=== PATIENT | male | born 1950 ===

== ENCOUNTER 2018-04-19 10:54 | Observation (INO) | payer MEDICARE ==
[2018-04-19 11:06] VITALS: BMI 22.6
[2018-04-19 12:45] LABS: VENOUS BLOOD GAS PCO2 48 mmHg (40-60); VENOUS BLOOD GAS PO2 15 mm/Hg (30-55)
[2018-04-19 12:56] LABS: BASO % 0.2 % (0.0-2.0); EOS # 0.1 K/uL (0.0-0.7); EOS % 2.5 % (0.0-4.0); HEMOGLOBIN 9.1 g/dL (12.0-18.0); LYMPH # 0.5 K/uL (1.0-4.3); LYMPH % 13.6 % (20.0-40.0); MEAN CELL VOLUME 71.5 fl (80.0-94.0); MEAN CORPUSCULAR HEMOGLOBIN 22.6 pg (27.0-31.0); MEAN CORPUSCULAR HGB CONC 31.6 g/dL (33.0-37.0); MEAN PLATELET VOLUME 8.8 fl (7.2-11.7); MONO # 0.4 K/uL (0.0-0.8); NEUT # 2.7 K/uL (1.8-7.0); NEUT % 73.7 % (50.0-75.0); RBC 4.03 Mil/uL (4.40-5.90); RED CELL DISTRIBUTION WIDTH 17.7 % (11.5-14.5); WHITE BLOOD COUNT 3.6 K/uL (4.8-10.8)
--- NOTE | 2018-04-19 13:03 | RAD ---
Date of service: 04/19/2018 HISTORY: possible admission COMPARISON: Portable chest 10/18/2013. FINDINGS: LUNGS: No active pulmonary disease. PLEURA: No significant pleural effusion identified, no pneumothorax apparent. CARDIOVASCULAR: Normal. OSSEOUS STRUCTURES: No significant abnormalities. VISUALIZED UPPER ABDOMEN: Normal. OTHER FINDINGS: None. IMPRESSION: No interval pulmonary disease appreciated bilaterally.
[2018-04-19 13:06] LABS: ALB/GLOB RATIO 1.4 (1.0-2.1); ALBUMIN 4.4 g/dL (3.5-5.0); ALT/SGPT 25 U/L (21-72); AST/SGOT 34 U/L (17-59); BLOOD UREA NITROGEN 20 mg/dl (9-20); CALCIUM 9.2 mg/dL (8.4-10.2); GFR NON-AFRICAN AMERICAN > 60
[2018-04-19 13:07] LABS: INR 1.1; PROTHROMBIN TIME 12.5 Seconds (9.8-13.1)
[2018-04-19 13:10] LABS: PARTIAL THROMBOPLASTIN TIME 37.5 Seconds (25.6-37.1)
[2018-04-19 13:34] LABS: URINE BILIRUBIN NEGATIVE (NEGATIVE); URINE BLOOD LARGE (NEGATIVE); URINE CLARITY TURBID (Clear); URINE COLOR RED (YELLOW); URINE GLUCOSE (UA) 50 mg/dL (Normal); URINE LEUKOCYTE ESTERASE NEG Leu/uL (Negative); URINE PROTEIN 100 mg/dL (NEGATIVE); URINE UROBILINOGEN 0.2-1.0 mg/dL (0.2-1.0)
[2018-04-19] MEDS ORDERED: Sodium Chloride 0.9% 1,000 ML IV STA (13:36)
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
[2018-04-19] MEDS ORDERED: Oxycodone/Acetaminophen 5/325 mg Tab PO STA (14:45)
[2018-04-19] MEDS ORDERED: Oxycodone/Acetaminophen 5/325 mg Tab ONE (15:17)
--- NOTE | 2018-04-19 17:27 | US ---
Date of service: 04/19/2018 PROCEDURE: Ultrasound of the Bladder HISTORY: gross hematuria COMPARISON: None available. TECHNIQUE: Sonographic evaluation of the bladder was performed. FINDINGS: There is [id number] diffuse urinary bladder wall thickening. No evidence of mass lesion or Intraluminal debris. No calculus or gross mass lesion. No free fluid in pelvis. Prevoid Volume: 102.3 cc. Post void residual: 21.24 cc. The prostate is enlarged protruding into the posterior bladder Asya. IMPRESSION: Diffuse circumferential urinary bladder wall thickening likely due to chronic bladder outlet obstruction due to enlarged prostate. Calculated postvoid residual is 21.2 cc.
--- NOTE | 2018-04-19 17:47 | US ---
Date of service: 04/19/2018 PROCEDURE: Ultrasound of the Kidneys HISTORY: gross hematuria COMPARISON: Correlation is made to CT scan of the abdomen and pelvis dated 03/28/13. TECHNIQUE: Sonogram of the kidneys. FINDINGS: RIGHT KIDNEY: Measures: 9.3 x 4.3 x 5.0 cm. Exophytic midpole cyst measuring 1.3 x 1.1 x 1.2 cm with thin avascular septation. Exophytic lower pole cyst measuring 3.5 x 3.6 x 3.5 cm. Lower pole cyst measuring 2.9 x 3.5 x 3.3 cm with thin avascular septation. Normal in size, contour and echogenicity. No stone, solid mass lesion or hydronephrosis visualized. LEFT KIDNEY: Measures: 9.8 x 5.5 x 4.7 cm. Midpole cyst measuring 1.5 x 1.3 x 1.3 cm. Normal in size, contour and echogenicity. No stone, solid mass lesion or hydronephrosis visualized. OTHER FINDINGS: None. IMPRESSION: Bilateral renal cysts.
[2018-04-19] MEDS ORDERED: Patient's Own Med (Oxycodone Hcl/Acetaminophen [Endocet 10-325 Mg Tablet] 1 TAB) PO PRN (22:29)
[2018-04-19] MEDS: Sodium Chloride 0.9% 1,000 ML IV SCH (23:14)
[2018-04-19] MEDS: Oxycodone/Acetaminophen 5/325 mg Tab PO PRN (23:15)
[2018-04-20] MEDS: Oxycodone/Acetaminophen 5/325 mg Tab PO PRN ×3 (05:37→16:40)
[2018-04-20 06:40] LABS: ALB/GLOB RATIO 1.4 (1.0-2.1); ALBUMIN 4.3 g/dL (3.5-5.0); ALT/SGPT 30 U/L (21-72); AST/SGOT 34 U/L (17-59); BLOOD UREA NITROGEN 16 mg/dl (9-20); CALCIUM 9.3 mg/dL (8.4-10.2); GFR NON-AFRICAN AMERICAN > 60
[2018-04-20 06:45] LABS: BASO % 0.2 % (0.0-2.0); EOS # 0.1 K/uL (0.0-0.7); EOS % 4.5 % (0.0-4.0); HEMOGLOBIN 10.2 g/dL (12.0-18.0); LYMPH # 0.6 K/uL (1.0-4.3); MEAN CELL VOLUME 71.4 fl (80.0-94.0); MEAN CORPUSCULAR HEMOGLOBIN 22.8 pg (27.0-31.0); MEAN PLATELET VOLUME 9.2 fl (7.2-11.7); MONO # 0.3 K/uL (0.0-0.8); MONO % 8.9 % (0.0-10.0); NEUT # 2.2 K/uL (1.8-7.0); NEUT % 68.4 % (50.0-75.0); NRBC % 0.1 % (0.0-0.0); RBC 4.45 Mil/uL (4.40-5.90); RED CELL DISTRIBUTION WIDTH 17.9 % (11.5-14.5); WHITE BLOOD COUNT 3.2 K/uL (4.8-10.8)
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
--- NOTE | 2018-04-20 13:20 | CP.PCM.CON ---
History of Present Illness - History of Present Illness History of Present Illness: This patient whole is 67 years of age male presented to the emergency room with the gross hematuria passing some clots as well. And painless. Patient stated that he has similar problem about couple years ago when he has a prosthetic surgery and also deny any chest pain no shortness of breath no difficulty breathing and no history of kidney problem otherwise. Past medical history as we mentioned above prostate tick surgery. Social history not contributory. Review of Systems - Constitutional Constitutional: absent: Anorexia, Chills - EENT Eyes: absent: Exophthalmos Nose/Mouth/Throat: absent: Nasal Congestion, Nasal Discharge - Cardiovascular Cardiovascular: absent: Acrocyanosis, Dyspnea, Leg Ulcers - Respiratory Respiratory: absent: Cough, Dyspnea - Gastrointestinal Gastrointestinal: absent: Abdominal Pain, Bloating, Coffee Ground Emesis - Genitourinary Genitourinary: As Per HPI, Hematuria - Musculoskeletal Musculoskeletal: absent: Abnormal Gait, Back Pain - Neurological Neurological: absent: As Per HPI, Abnormal Gait, Abnormal Hearing, Abnormal Movements, Abnormal Speech, Behavioral Changes, Burning Sensations, Confusion, Convulsions, Disequilibrium, Dizziness, Numbness, Focal Weakness, Frequent Falls , Headaches, Lack of Coordination, Loss of Vision, Memory Loss, Paresthesias, Radicular Pain, Restless Legs, Sensory Deficit, Syncope, Tingling, Tremor, Vertigo, Weakness, Other Visual Disturbances, Other - Psychiatric Psychiatric: absent: As Per HPI, Abnormal Sleep Pattern, Anhedonia, Anxiety, Auditory Hallucinations, Behavioral Changes, Change in Appetite, Change in Libido, Confusion, Depression, Difficulty Concentrating, Hallucinations, Homicidal Ideation, Hopelessness, Irritability, Memory Loss, Mood Swings, Panic Attacks, Paranoia, Suicidal Ideation, Visual Hallucinations, Tactile Hallucinations, Other - Endocrine Endocrine: absent: As Per HPI, Change in Body Appearance, Change in Libido, Cold Intolorance, Deepening of Voice, Excessive Sweating, Fatigue, Flushing, Heat Intolorance, Increase in Ring/Shoe/Hat Size, Palpitations, Polydipsia, Polyphagia, Polyuria, Other - Hematologic/Lymphatic Hematologic: absent: Easy Bleeding Past Patient History - Infectious Disease Hx of Infectious Diseases: None - Past Medical History & Family History Past Medical History?: Yes - Past Social History Smoking Status: Never Smoked - CARDIAC Hx Cardiac Disorders: Yes Hx Hypertension: Yes - PULMONARY Hx Respiratory Disorders: No - NEUROLOGICAL Hx Neurological Disorder: No - HEENT Hx HEENT Problems: No - RENAL Hx Chronic Kidney Disease: No - ENDOCRINE/METABOLIC Hx Endocrine Disorders: No - HEMATOLOGICAL/ONCOLOGICAL Hx Blood Disorders: No - INTEGUMENTARY Hx Dermatological Problems: No - MUSCULOSKELETAL/RHEUMATOLOGICAL Hx Musculoskeletal Disorders: Yes Hx Back Pain: Yes Hx Falls: No - GASTROINTESTINAL Hx Gastrointestinal Disorders: No - GENITOURINARY/GYNECOLOGICAL Hx Genitourinary Disorders: Yes - PSYCHIATRIC Hx Substance Use: No - SURGICAL HISTORY Hx Surgeries: Yes Hx Musculoskeletal Surgery: Yes Other/Comment: PROSTATECTOMY, Right foot surgery, back surgery - ANESTHESIA Hx Anesthesia: Yes Hx Anesthesia Reactions: No Hx Malignant Hyperthermia: No Meds Allergies/Adverse Reactions: Allergies Allergy/AdvReac Type Severity Reaction Status Date / Time No Known Allergies Allergy Verified 07/29/15 12:42 - Medications Medications: Current Medications Fentanyl (Duragesic) 1 patch TD Q72H [facility] PRN Reason: Protocol Last Admin: 04/19/18 23:13 Dose: 1 patch Sodium Chloride (Sodium Chloride 0.9%) 1,000 mls @ 75 mls/hr IV .[id number] [facility] Stop: 04/20/18 22:28 Last Admin: 04/19/18 23:14 Dose: 75 mls/hr Piperacillin Sod/Tazobactam (Sod 3.375 gm/ Sodium Chloride) 100 mls @ 100 mls/ hr IVPB Q8 [facility] PRN Reason: Protocol Lisinopril (Zestril) 20 mg PO DAILY [facility] Last Admin: 04/20/18 10:29 Dose: 20 mg Oxycodone/Acetaminophen (Percocet 5/325 Mg Tab) 2 tab PO Q6 PRN PRN Reason: Pain, severe (8-10) Stop: 04/23/18 08:58 Last Admin: 04/20/18 10:29 Dose: 2 tab Physical Exam - Constitutional Appears: No Acute Distress - ENT Exam ENT Exam: Mucous Membranes Moist - Neck Exam Neck exam: Negative for: Lymphadenopathy - Respiratory Exam Respiratory Exam: NORMAL BREATHING PATTERN. absent: Chest Wall Tenderness - Cardiovascular Exam Cardiovascular Exam: REGULAR RHYTHM. absent: JVD, Rubs - GI/Abdominal Exam GI & Abdominal Exam: Normal Bowel Sounds - Extremities Exam Extremities exam: Negative for: calf tenderness - Back Exam Back exam: absent: CVA tenderness (L), CVA tenderness (R) - Neurological Exam Neurological exam: Alert - Psychiatric Exam Psychiatric exam: Normal Affect Results - Vital Signs Recent Vital Signs: Last Vital Signs Temp 97.9 F 04/20/18 07:56 Pulse 74 04/20/18 10:29 Resp 20 04/20/18 07:56 BP 162/76 H 04/20/18 10:29 Pulse Ox 99 04/20/18 07:56 - Labs Result Diagrams: 04/20/18 05:55 04/20/18 05:55 Labs: Laboratory Results - last 24 hr 04/19/18 04/20/18 04/20/18 13:13 05:55 05:55 WBC 3.2 L RBC 4.45 Hgb 10.2 L Hct 31.8 L MCV 71.4 L MCH 22.8 L MCHC 32.0 L RDW 17.9 H Plt Count 101 L MPV 9.2 Neut % (Auto) 68.4 Lymph % (Auto) 18.0 L [place] % (Auto) 8.9 Eos % (Auto) 4.5 H Baso % (Auto) 0.2 Neut # (Auto) 2.2 Lymph # (Auto) 0.6 L [place] # (Auto) 0.3 Eos # (Auto) 0.1 Baso # (Auto) 0.0 Sodium 139 Potassium 5.3 H Chloride 106 Carbon Dioxide 24 Anion Gap 14 BUN 16 Creatinine 0.7 L Est GFR ( Amer) > 60 Est GFR (Non-Af Amer) > 60 Random Glucose 92 Calcium 9.3 Total Bilirubin 0.7 AST 34 ALT 30 Alkaline Phosphatase 63 Total Protein 7.5 Albumin 4.3 Globulin 3.1 Albumin/Globulin Ratio 1.4 Urine Color Red Urine Clarity Turbid Urine pH 5.0 Ur Specific [place] 1.026 Urine Protein 100 Urine Glucose (UA) 50 Urine Ketones Negative Urine Blood Large Urine Nitrate Negative Urine Bilirubin Negative Urine Urobilinogen 0.2-1.0 Ur Leukocyte Esterase Neg Urine RBC (Auto) 07977 H Assessment & Plan (1) Hematuria Assessment and Plan: Patient presented with the gross hematuria most likely related to the prostate issue or bladder ,which need urological evaluation including cystoscope urology was called Ultrasound showed bilateral small cyst of nonsignificant at this point hnlikely to cause a gross hematuria. Status: Acute (2) Urinary retention Status: Acute
[2018-04-20] MEDS: Sodium Chloride 0.9% 1,000 ML IV SCH (14:14)
[2018-04-20] MEDS: Piperacillin/Tazobact 3.375 GM in Sodium Chloride 0.9% 100 ML IVPB SCH ×3 (14:14→21:14)
[2018-04-21] MEDS: Oxycodone/Acetaminophen 5/325 mg Tab PO PRN ×3 (00:18→13:43)
[2018-04-21] MEDS: Piperacillin/Tazobact 3.375 GM in Sodium Chloride 0.9% 100 ML IVPB SCH ×2 (05:17→14:05)
--- NOTE | 2018-04-21 11:57 | CP.PCM.PN ---
Subjective - Date & Time of Evaluation Date of Evaluation: 04/21/18 Time of Evaluation: 11:55 - Subjective Subjective: patient appears to be comfortable Objective - Vital Signs/Intake and Output Vital Signs (last 24 hours): Temp Pulse Resp BP Pulse Ox 97.5 F L 75 20 157/77 H 97 04/21/18 07:50 04/21/18 08:53 04/21/18 07:50 04/21/18 08:53 04/21/18 07:50 - Medications Medications: Current Medications Fentanyl (Duragesic) 1 patch TD Q72H [facility] PRN Reason: Protocol Last Admin: 04/19/18 23:13 Dose: 1 patch Piperacillin Sod/Tazobactam (Sod 3.375 gm/ Sodium Chloride) 100 mls @ 100 mls/ hr IVPB Q8@0600,1400,2200 [facility] PRN Reason: Protocol Last Admin: 04/21/18 05:17 Dose: 100 mls/hr Lisinopril (Zestril) 20 mg PO DAILY [facility] Last Admin: 04/21/18 08:53 Dose: 20 mg Oxycodone/Acetaminophen (Percocet 5/325 Mg Tab) 2 tab PO Q6 PRN PRN Reason: Pain, severe (8-10) Stop: 04/23/18 08:58 Last Admin: 04/21/18 06:42 Dose: 2 tab - Labs Labs: 04/20/18 05:55 04/20/18 12:45 PT 12.5 Seconds (9.8-13.1) 04/19/18 12:45 INR 1.1 04/19/18 12:45 APTT 37.5 Seconds (25.6-37.1) H 04/19/18 12:45 - Constitutional Appears: No Acute Distress - ENT Exam ENT Exam: Mucous Membranes Moist - Neck Exam Neck Exam: absent: Lymphadenopathy - Respiratory Exam Respiratory Exam: absent: Chest Wall Tenderness - Cardiovascular Exam Cardiovascular Exam: absent: Gallop, JVD, Rubs - GI/Abdominal Exam GI & Abdominal Exam: Soft, Normal Bowel Sounds - Extremities Exam Extremities Exam: absent: Calf Tenderness - Back Exam Back Exam: absent: CVA tenderness (L), CVA tenderness (R) - Neurological Exam Neurological Exam: Alert - Psychiatric Exam Psychiatric exam: Normal Affect - Skin Skin Exam: absent: Cyanosis Assessment and Plan (1) Hematuria Assessment & Plan: patient presented with a gross hematuria patient need urology evaluation Bilateral renal cyst to be upset of a monitor and repeat ultrasound in approximately 6-9 months Kidney function stable hour will follow-up as needed Status: Acute (2) Urinary retention Status: Acute
--- NOTE | 2018-04-21 14:06 | CP.PCM.PN ---
Subjective - Date & Time of Evaluation Date of Evaluation: 04/21/18 Time of Evaluation: 11:00 - Subjective Subjective: pt is stable, no new complaints. awaiting urology eval Objective - Vital Signs/Intake and Output Vital Signs (last 24 hours): Temp Pulse Resp BP Pulse Ox 97.5 F L 75 20 157/77 H 97 04/21/18 07:50 04/21/18 08:53 04/21/18 07:50 04/21/18 08:53 04/21/18 07:50 - Medications Medications: Current Medications Fentanyl (Duragesic) 1 patch TD Q72H [facility] PRN Reason: Protocol Last Admin: 04/19/18 23:13 Dose: 1 patch Piperacillin Sod/Tazobactam (Sod 3.375 gm/ Sodium Chloride) 100 mls @ 100 mls/ hr IVPB Q8@0600,1400,2200 [facility] PRN Reason: Protocol Last Admin: 04/21/18 05:17 Dose: 100 mls/hr Lisinopril (Zestril) 20 mg PO DAILY [facility] Last Admin: 04/21/18 08:53 Dose: 20 mg Oxycodone/Acetaminophen (Percocet 5/325 Mg Tab) 2 tab PO Q6 PRN PRN Reason: Pain, severe (8-10) Stop: 04/23/18 08:58 Last Admin: 04/21/18 13:43 Dose: 2 tab - Labs Labs: 04/20/18 05:55 04/20/18 12:45 PT 12.5 Seconds (9.8-13.1) 04/19/18 12:45 INR 1.1 04/19/18 12:45 APTT 37.5 Seconds (25.6-37.1) H 04/19/18 12:45 - Constitutional Appears: Non-toxic - Head Exam Head Exam: NORMAL INSPECTION - Eye Exam Eye Exam: Normal appearance Pupil Exam: NORMAL ACCOMODATION - ENT Exam ENT Exam: Mucous Membranes Moist - Neck Exam Neck Exam: Normal Inspection - Respiratory Exam Respiratory Exam: Clear to Ausculation Bilateral, NORMAL BREATHING PATTERN - Cardiovascular Exam Cardiovascular Exam: REGULAR RHYTHM - GI/Abdominal Exam GI & Abdominal Exam: Normal Bowel Sounds - Neurological Exam Neurological Exam: Alert, Oriented x3 Assessment and Plan - Assessment and Plan (Free Text) Assessment: 1. hematuria Plan: pt stable no more bleeding nephro eval appreciated urology eval pending will d/c if cleared by urology f/u pmd in 2-3 days cont to monitor
[2018-04-21 16:28] VITALS: RESP 18; TEMP 98.2; O2SAT 99
[2018-04-21 18:38] VITALS: BP 148/75; PULSE 72
--- NOTE | 2018-04-21 19:04 | CP.PCM.PN ---
Subjective - Date & Time of Evaluation Date of Evaluation: 04/21/18 Time of Evaluation: 19:02 - Subjective Subjective: UROLOGY pt seen today he has no more hematuria since initial presentation. Treated with iv antibiiotics for UTI he is voiding freely with clear urine. He can be discharged with PO Keflex and office follow up in 2 wks Objective - Vital Signs/Intake and Output Vital Signs (last 24 hours): Temp Pulse Resp BP Pulse Ox 98.2 F 72 18 148/75 99 04/21/18 18:37 04/21/18 18:37 04/21/18 18:37 04/21/18 18:37 04/21/18 18:37 - Medications Medications: Current Medications Fentanyl (Duragesic) 1 patch TD Q72H [facility] PRN Reason: Protocol Last Admin: 04/19/18 23:13 Dose: 1 patch Piperacillin Sod/Tazobactam (Sod 3.375 gm/ Sodium Chloride) 100 mls @ 100 mls/ hr IVPB Q8@0600,1400,2200 [facility] PRN Reason: Protocol Last Admin: 04/21/18 14:05 Dose: 100 mls/hr Lisinopril (Zestril) 20 mg PO DAILY [facility] Last Admin: 04/21/18 08:53 Dose: 20 mg Oxycodone/Acetaminophen (Percocet 5/325 Mg Tab) 2 tab PO Q6 PRN PRN Reason: Pain, severe (8-10) Stop: 04/23/18 08:58 Last Admin: 04/21/18 13:43 Dose: 2 tab - Labs Labs: 04/20/18 05:55 04/20/18 12:45 PT 12.5 Seconds (9.8-13.1) 04/19/18 12:45 INR 1.1 04/19/18 12:45 APTT 37.5 Seconds (25.6-37.1) H 04/19/18 12:45
== END 2018-04-21 19:15 | disposition home or self-care (01) ==
LOC: H.ER 10:54 → INTOOBSV 18:57 → H.ERHOLD 18:57 → H.MEDSURG1 21:43
PROVIDERS: ADMIT Family Medicine; ATTEND Family Medicine
DX: N39.0 Urinary tract infection, site not specified (principal); I10 Essential (primary) hypertension; N13.8 Other obstructive and reflux uropathy; N28.1 Cyst of kidney, acquired; N40.1 Benign prostatic hyperplasia with lower urinary tract symptoms; G89.29 Other chronic pain; R31.0 Gross hematuria; D64.9 Anemia, unspecified
CPT/HCPCS: 36415; 71045; 76770; 76857; 80053; 81003; 82803; 84132; 85025; 85610; 85730; 87086; 96360; 99285; G0378; J2543; J7030

== ENCOUNTER 2018-10-25 09:06 | Emergency (ER) | payer MEDICARE ==
[2018-10-25 09:06] VITALS: BMI 22.6
[2018-10-25 09:16] VITALS: PULSE 84; RESP 17; TEMP 97.7; O2SAT 100
--- NOTE | 2018-10-25 10:37 | CT ---
Date of service: 10/25/2018 PROCEDURE: CT HEAD WITHOUT CONTRAST. HISTORY: head injury COMPARISON: Unenhanced head CT 05/16/2013. TECHNIQUE: Axial computed tomography images were obtained through the head/brain without intravenous contrast. Radiation dose: Total exam DLP = 860.58 mGy-cm. This CT exam was performed using one or more of the following dose reduction techniques: Automated exposure control, adjustment of the mA and/or kV according to patient size, and/or use of iterative reconstruction technique. FINDINGS: HEMORRHAGE: No intracranial hemorrhage. BRAIN: Good corticomedullary differentiation is seen. Reiterated limited diffuse cerebral atrophy and chronic microangiopathy. No suspicious extra-axial fluid collection is identified and the midline brain anatomy appears grossly nonfocal as imaged. No mass effect identified. VENTRICLES: Unremarkable. No hydrocephalus. CALVARIUM: No destructive bony lesion or displaced fracture identified including through the skullbase. PARANASAL SINUSES: Unremarkable as visualized. No significant inflammatory changes. MASTOID AIR CELLS: Unremarkable as visualized. No inflammatory changes. OTHER FINDINGS: None. IMPRESSION: Limited age-related neuro degenerative changes are reiterated as compared prior CT 05/16/2013. No definite acute intracranial findings by standard CT criteria.
--- NOTE | 2018-10-25 10:47 | CT ---
Date of service: 10/25/2018 PROCEDURE: CT MAXILLOFACIAL BONES WITHOUT CONTRAST HISTORY: right periorbital injury COMPARISON: None available. TECHNIQUE: Contiguous axial CT images of the maxillofacial bones were obtained. Coronal and sagittal reformats were generated. Radiation dose: Total exam DLP = 827.76 mGy-cm. This CT exam was performed using one or more of the following dose reduction techniques: Automated exposure control, adjustment of the mA and/or kV according to patient size, and/or use of iterative reconstruction technique. FINDINGS: NASAL BONES: Unremarkable. ORBITS: Unremarkable. PARANASAL SINUSES/ MASTOIDS: Others partial opacification of the bilateral mastoid air cell complexes, particularly inferiorly reflecting bilateral mastoid effusions without obvious bony destruction appreciable. MAXILLA: Unremarkable. MANDIBLE/ TEMPOROMANDIBULAR JOINTS: Unremarkable. SKULL BASE: Unremarkable. TEMPORAL BONES: Middle ears and mastoid grossly unremarkable. OTHER FINDINGS: None. IMPRESSION: No posttraumatic findings throughout the facial bone CT exams submitted, including right orbit. Note is made of limited bilateral mastoid effusions at the inferior mastoid air cell complex. No definite evidence of otitis media, bilaterally.
--- NOTE | 2018-10-25 10:52 | ED PDOC ---
HPI: Trauma/Fall - HPI Time Seen by Provider: 10/25/18 09:30 Chief Complaint (Nursing): Trauma Chief Complaint (Provider): Trauma History Per: Patient History/Exam Limitations: no limitations Injury Occurred (Timing): Today @ (829) Additional Complaint(s): 68 year old male with past history of chronic back pain, presents to the emergency department for an evaluation of a trip and fall injury that occurred 30 minutes prior to arrival as he was walking up stairs to his building. Patient states he tripped on the last step and hit face on the ground. He denies loss of consciousness, dizziness, other bodily injuries, syncope, chest pain, shortness of breath, numbness, or weakness. At present, he reports a headache and right eye pain. Patient did not take his prescribed Percocet for relief today. PCP: Dr. Simba Alcantara Past Medical History Reviewed: Historical Data, Nursing Documentation, Vital Signs Vital Signs: Last Vital Signs Temp 97.7 F 10/25/18 09:15 Pulse 84 10/25/18 09:15 Resp 17 10/25/18 09:15 BP 176/75 H 10/25/18 09:15 Pulse Ox 100 10/25/18 09:15 - Medical History PMH: Back Problems (on percocet), HTN Denies: Chronic Kidney Disease - Family History Family History: States: Unknown Family Hx - Immunization History Hx Tetanus Toxoid Vaccination: No Hx Influenza Vaccination: No Hx Pneumococcal Vaccination: No - Home Medications Home Medications: Ambulatory Orders Medication Instructions Recorded Lisinopril [Zestril] 20 mg PO DAILY 04/19/18 Oxycodone HCl/Acetaminophen 1 tab PO Q6 PRN 04/19/18 [Endocet 10-325 mg Tablet] fentaNYL 50 mcg/hr [Duragesic 1 patch TD Q72H 04/19/18 Patch 50 mcg/hr] - Allergies Allergies/Adverse Reactions: Allergies Allergy/AdvReac Type Severity Reaction Status Date / Time No Known Allergies Allergy Verified 07/29/15 12:42 Review of Systems ROS Statement: Except As Marked, All Systems Reviewed And Found Negative ENT: Positive for: Other (facial injury) Cardiovascular: Negative for: Chest Pain Respiratory: Negative for: Shortness of Breath Neurological: Negative for: Weakness, Numbness, Dizziness, Other (LOC or syncope) Physical Exam - Reviewed Nursing Documentation Reviewed: Yes Vital Signs Reviewed: Yes - Physical Exam Appears: Positive for: No Acute Distress Head Exam: Negative for: ATRAUMATIC Skin: Positive for: Normal Color Eye Exam: Positive for: EOMI, PERRL, Other (2cm superfical laceration to border of right eyebrow and orbital region without bleeding, swelling, or ecchymosis) ENT: Positive for: Normal ENT Inspection Neck: Positive for: Normal, Painless ROM, Supple Cardiovascular/Chest: Positive for: Regular Rate, Rhythm, Chest Non Tender Respiratory: Positive for: Normal Breath Sounds. Negative for: Respiratory Distress Extremity: Positive for: Normal ROM (upper/lowr). Negative for: Tenderness (upper/lower), Deformity (upper/lower) Neurologic/Psych: Positive for: Alert, Oriented. Negative for: Motor/Sensory Deficits - ECG O2 Sat by Pulse Oximetry: 100 (RA) Pulse Ox Interpretation: Normal - Progress Re-evaluation Time: 11:45 Condition: Re-examined, Improved Medical Decision Making Medical Decision Making: Initial Impression: head injury; facial injury Initial Plan: * CT Head * CT maxillofacial Time: 3 --CT head FINDINGS: HEMORRHAGE: No intracranial hemorrhage. BRAIN: Good corticomedullary differentiation is seen. Reiterated limited diffuse cerebral atrophy and chronic microangiopathy. No suspicious extra-axial fluid c ollection is identified and the midline brain anatomy appears grossly nonfocal as imaged. No mass effect identified. VENTRICLES: Unremarkable. No hydrocephalus. CALVARIUM: No destructive bony lesion or displaced fracture identified including through the skullbase. PARANASAL SINUSES: Unremarkable as visualized. No significant inflammatory changes. MASTOID AIR CELLS: Unremarkable as visualized. No inflammatory changes. OTHER FINDINGS: None. IMPRESSION: Limited age-related neuro degenerative changes are reiterated as compared prior CT 05/16/2013. No definite acute intracranial findings by standard CT criteria. Time: 1044 --CT maxillofacial FINDINGS: NASAL BONES: Unremarkable. ORBITS: Unremarkable. PARANASAL SINUSES/ MASTOIDS: Others partial opacification of the bilateral mastoid air cell complexes, particularly inferiorly reflecting bilateral mastoid effusions without obvious bony destruction appreciable. MAXILLA: Unremarkable. MANDIBLE/ TEMPOROMANDIBULAR JOINTS: Unremarkable. SKULL BASE: Unremarkable. TEMPORAL BONES: Middle ears and mastoid grossly unremarkable. OTHER FINDINGS: None. IMPRESSION: No posttraumatic findings throughout the facial bone CT exams submitted, including right orbit. Note is made of limited bilateral mastoid effusions at the inferior mastoid air cell complex. No definite evidence of otitis media, bilaterally. - Scribe Attestation: Documented by Iona Judd, acting as a scribe for Naomy Walters MD. Provider Scribe Attestation: All medical record entries made by the Scribe were at my direction and personally dictated by me. I have reviewed the chart and agree that the record accurately reflects my personal performance of the history, physical exam, medical decision making, and the department course for this patient. I have also personally directed, reviewed, and agree with the discharge instructions and disposition. Disposition - Clinical Impression Clinical Impression: Head injury, Facial injury, Facial laceration - Patient ED Disposition Is Patient to be Admitted: No Doctor Will See Patient In The: Office Counseled Patient/Family Regarding: Studies Performed, Diagnosis - Disposition Referrals: Simba Alcantara MD [Primary Care Provider] - Disposition: Routine/Home Disposition Time: 11:47 Condition: GOOD Additional Instructions: FARHAT GAMEZ, thank you for letting us take care of you today. Your provider was Naomy Walters MD and you were treated for FALL:FACIAL INJURY. The emergency medical care you received today was directed at your acute symptoms. If you were prescribed any medication, please fill it and take as directed. It may take several days for your symptoms to resolve. Return to the Emergency Department if your symptoms worsen, do not improve, or if you have any other pr oblems. Please contact your doctor or call one of the physicians/clinics you have been referred to that are listed on the Patient Visit Information form that is included in your discharge packet. Bring any paperwork you were given at discharge with you along with any medications you are taking to your follow up visit. Our treatment cannot replace ongoing medical care by a primary care provider outside of the emergency department. Thank you for allowing the [email or web address] team to be part of your care today. If you had an X-Ray or CT scan: A Radiologist will review the ED reading if any change in treatment is needed we will contact you. If you had a blood, urine, or wound culture: It will take several days for the results, if any change in treatment is needed we will contact you. If you had an STI test: It will take 48 hours for the results. Please call after 1 week if you have not heard back. Instructions: Closed Head Injury (DC)
[2018-10-25 12:00] VITALS: BP 132/74
== END 2018-10-25 12:01 | disposition home or self-care (01) ==
LOC: H.ER 09:06 → SUPCPDRO 09:06 → H.ER 12:01
DX: S01.81XA Laceration without foreign body of other part of head, initial encounter (principal); W10.9XXA Fall (on) (from) unspecified stairs and steps, initial encounter; Y92.89 Other specified places as the place of occurrence of the external cause; G89.29 Other chronic pain; I10 Essential (primary) hypertension; I73.9 Peripheral vascular disease, unspecified

== ENCOUNTER 2019-01-02 13:23 | Observation (INO) | payer MEDICARE ==
[2019-01-02 13:24] VITALS: BMI 22.6
[2019-01-02 14:29] LABS: BASO # 0.1 K/uL (0.0-0.2); BASO % 0.6 % (0.0-2.0); EOS # 0.6 K/uL (0.0-0.7); EOS % 5.6 % (0.0-4.0); HEMOGLOBIN 8.2 g/dL (12.0-18.0); LYMPH # 3.3 K/uL (1.0-4.3); LYMPH % 29.6 % (20.0-40.0); MEAN CELL VOLUME 65.7 fl (80.0-94.0); MEAN CORPUSCULAR HEMOGLOBIN 19.8 pg (27.0-31.0); MEAN CORPUSCULAR HGB CONC 30.1 g/dL (33.0-37.0); MEAN PLATELET VOLUME 8.9 fl (7.2-11.7); MONO # 0.8 K/uL (0.0-0.8); MONO % 7.2 % (0.0-10.0); NEUT # 6.4 K/uL (1.8-7.0); NRBC % 0.1 % (0.0-0.0); RBC 4.16 Mil/uL (4.40-5.90); RED CELL DISTRIBUTION WIDTH 24.9 % (11.5-14.5); WHITE BLOOD COUNT 11.2 K/uL (4.8-10.8)
[2019-01-02 14:44] LABS: ALB/GLOB RATIO 1.2 (1.0-2.1); ALBUMIN 4.3 g/dL (3.5-5.0); ALT/SGPT 65 U/L (21-72); AST/SGOT 78 U/L (17-59); BLOOD UREA NITROGEN 23 mg/dl (9-20); CALCIUM 8.6 mg/dL (8.4-10.2); GFR NON-AFRICAN AMERICAN > 60
--- NOTE | 2019-01-02 15:18 | ED PDOC ---
HPI: Altered Mental Status Time Seen by Provider: 01/02/19 13:52 Chief Complaint (Nursing): Altered Mental Status Chief Complaint (Provider): AMS History Per: Patient, EMS History/Exam Limitations: None Onset/Duration Of Symptoms: Hrs Current Symptoms Are (Timing): Better Exacerbating Factor(s): Unknown Additional History Per: Patient Associated Symptoms: Syncope Additional Complaint(s): 68 year old male brought in by EMS in stretcher after he was found by his grand- daughter leaning against stove with his eye closed. Patient reports he was cooking and when he came to, EMS was over him. Patient reports his last episode of syncope was 6 months ago, was seen in hospital and admitted overnight for observation. Records demonstrate he was admitted on 12/11/2018 for symptomatic anemia. Patient denies having physical compliants at this time. denies nausea, vomiting, dizziness, blurry vision, abdominal pain. Patient states he took percocet 10/325mg at 5am today. Past Medical History Reviewed: Historical Data, Nursing Documentation, Vital Signs Vital Signs: Last Vital Signs Temp 99.7 F H 01/02/19 13:26 Pulse 101 H 01/02/19 13:26 Resp 16 01/02/19 13:26 BP 184/95 H 01/02/19 13:26 Pulse Ox 98 01/02/19 13:26 JOELLEN Report Viewed: No Primary Care Provider: FAMILY PROVIDER,NO - Medical History PMH: Back Problems, HTN Denies: Diabetes, Hepatitis, HIV, Chronic Kidney Disease, Seizures, Sexually Transmitted Disease - Surgical History Surgical History: No Surg Hx - Family History Family History: States: Unknown Family Hx - Living Arrangements Living Arrangements: With Family (granddaughter) - Immunization History Hx Tetanus Toxoid Vaccination: No Hx Influenza Vaccination: No Hx Pneumococcal Vaccination: No - Allergies Allergies/Adverse Reactions: Allergies Allergy/AdvReac Type Severity Reaction Status Date / Time No Known Allergies Allergy Verified 01/02/19 13:38 Review of Systems ROS Statement: Except As Marked, All Systems Reviewed And Found Negative Constitutional: Negative for: Fever, Chills, Sweats, Weakness, Malaise Respiratory: Negative for: Cough, Shortness of Breath, SOB with Exertion, Wheezing Gastrointestinal: Negative for: Nausea, Vomiting, Abdominal Pain, Diarrhea, Constipation Genitourinary Male: Negative for: Dysuria Skin: Negative for: Rash Neurological: Negative for: Weakness, Numbness, Incoordination, Change in Speech, Confusion, Seizures, Altered Mental Status, Headache, Dizziness, Other Physical Exam - Reviewed Nursing Documentation Reviewed: Yes Vital Signs Reviewed: Yes - Physical Exam Appears: Positive for: Well, Non-toxic, No Acute Distress Head Exam: Positive for: ATRAUMATIC, NORMAL INSPECTION, NORMOCEPHALIC Skin: Positive for: Normal Color, Warm, DRY Eye Exam: Positive for: Normal appearance, EOMI, PERRL. Negative for: Nystagmus, Periorbital swelling, Periorbital tenderness, Conjunctival injection ENT: Positive for: Normal ENT Inspection Neck: Positive for: Normal, Painless ROM, Supple Cardiovascular/Chest: Positive for: Regular Rate, Rhythm Respiratory: Positive for: CNT, Normal Breath Sounds Pulses-Radial (L): 2+ Pulses-Radial (R): 2+ Gastrointestinal/Abdominal: Positive for: Normal Exam, Bowel Sounds, Soft. Negative for: Tenderness, Distended Back: Positive for: Normal Inspection Extremity: Positive for: Normal ROM Neurological/Psych: Positive for: Awake, Alert, Normal Tone, Oriented, forestry fire aide II- XII (intact). Negative for: Motor/Sensory Deficits - Laboratory Results Result Diagrams: 01/02/19 14:14 01/02/19 14:14 Lab Results: Troponin I < 0.0120 ng/mL (0.00-0.120) 01/02/19 14:14 Total Bilirubin 0.5 mg/dl (0.2-1.3) 01/02/19 14:14 AST 78 U/L (17-59) H D 01/02/19 14:14 ALT 65 U/L (21-72) 01/02/19 14:14 Alkaline Phosphatase 147 U/L (38-126) H D 01/02/19 14:14 Total Protein 7.9 G/DL (6.3-8.2) 01/02/19 14:14 Albumin 4.3 g/dL (3.5-5.0) 01/02/19 14:14 Globulin 3.6 gm/dL (2.2-3.9) 01/02/19 14:14 Albumin/Globulin Ratio 1.2 (1.0-2.1) 01/02/19 14:14 - ECG ECG Rhythm: Positive for: Normal QRS Rate: 89 O2 Sat by Pulse Oximetry: 98 Pulse Ox Interpretation: Normal - Radiology X-Ray: Interpreted by Me X-Ray Interpretation: No Acute Disease Medical Decision Making Medical Decision Making: --CBC --CMP --trop --UA --Urine CS --Cxr --CT head --0.9ns --zofran --Rocephin 1600 Labs reviewed by me: hgb 8.2 hct: 27.3 on 12/16/18 he was d/c with hgb of 9.1 hct 30.3. UA: large leuks, Many Bacteria, WBC's. Patient denies having dark or bloody stools. Patient is now c/o dizziness and nausea started after returning from xray. Dr. Brendan cohen called to notify, Patient to be admitted to Telemetry Observation. --0.9 NS 1000 -- zofran 4mg iv Accession No. : [id number] Patient Name / ID : VERA DOUGHERTY / [id number] Exam Date : 01/02/2019 15:02:48 ( Approved ) Study Comment : Sex / Age : M / 68Y Creator : Manuel Trammell MD Dictator : Manuel Trammell MD Cable Placer : Boat Hoist Operator : Manuel Trammell MD Approver2 : Report Date : 01/02/2019 16:26:47 My Comment : Date of service: 01/02/2019 HISTORY: syncope COMPARISON: Portable chest 04/19/2018. TECHNIQUE: Chest PA and lateral views FINDINGS: LUNGS: No active pulmonary disease. PLEURA: No significant pleural effusion identified. No pneumothorax apparent. CARDIOVASCULAR: No aortic atherosclerotic calcification present. Normal cardiac size. No pulmonary vascular congestion. OSSEOUS STRUCTURES: No significant abnormalities. VISUALIZED UPPER ABDOMEN: Normal. OTHER FINDINGS: None. IMPRESSION: No interval acute cardiopulmonary disease appreciated. Accession No. : [id number] Patient Name / ID : VERA DOUGHERTY / [id number] Exam Date : 01/02/2019 15:06:41 ( Approved ) Study Comment : Sex / Age : M / 68Y Creator : Manuel Trammell MD Dictator : Manuel Trammell MD Cable Placer : Boat Hoist Operator : Manuel Trammell MD Approver2 : Report Date : 01/02/2019 15:28:02 My Comment : Date of service: 01/02/2019 PROCEDURE: CT HEAD WITHOUT CONTRAST. HISTORY: syncope COMPARISON: Noncontrast head CT 10/25/2018. TECHNIQUE: Axial computed tomography images were obtained through the head/brain without intravenous contrast. Radiation dose: Total exam DLP = 864.61 mGy-cm. This CT exam was performed using one or more of the following dose reduction techniques: Automated exposure control, adjustment of the mA and/or kV according to patient size, and/or use of iterative reconstruction technique. FINDINGS: HEMORRHAGE: No intracranial hemorrhage. BRAIN: Stable age related neuro degenerative changes are identified comprised of mild d iffuse cerebral atrophy and chronic microangiopathy. No interval mass effect or loss of corticomedullary differentiation. Midline brain anatomy is stable and there is no suspicious extra-axial collection appreciated. VENTRICLES: Unremarkable. No hydrocephalus. CALVARIUM: Unremarkable. PARANASAL SINUSES: Unremarkable as visualized. No significant inflammatory changes. MASTOID AIR CELLS: Unremarkable as visualized. No inflammatory changes. OTHER FINDINGS: None. IMPRESSION: No definite acute intracranial findings. Stable mild age related neuro degenerative changes reiterated as compared to prior CT 10/25/2018. Disposition - Clinical Impression Clinical Impression: Syncope, UTI (urinary tract infection) - Patient ED Disposition Is Patient to be Admitted: Yes Counseled Patient/Family Regarding: Diagnosis - Disposition Disposition Time: 16:00 Condition: FAIR - Pt Status Changed To: Hospital Disposition Of: Observation - POA Present On Arrival: None
--- NOTE | 2019-01-02 15:31 | CT ---
Date of service: 01/02/2019 PROCEDURE: CT HEAD WITHOUT CONTRAST. HISTORY: syncope COMPARISON: Noncontrast head CT 10/25/2018. TECHNIQUE: Axial computed tomography images were obtained through the head/brain without intravenous contrast. Radiation dose: Total exam DLP = 864.61 mGy-cm. This CT exam was performed using one or more of the following dose reduction techniques: Automated exposure control, adjustment of the mA and/or kV according to patient size, and/or use of iterative reconstruction technique. FINDINGS: HEMORRHAGE: No intracranial hemorrhage. BRAIN: Stable age related neuro degenerative changes are identified comprised of mild diffuse cerebral atrophy and chronic microangiopathy. No interval mass effect or loss of corticomedullary differentiation. Midline brain anatomy is stable and there is no suspicious extra-axial collection appreciated. VENTRICLES: Unremarkable. No hydrocephalus. CALVARIUM: Unremarkable. PARANASAL SINUSES: Unremarkable as visualized. No significant inflammatory changes. MASTOID AIR CELLS: Unremarkable as visualized. No inflammatory changes. OTHER FINDINGS: None. IMPRESSION: No definite acute intracranial findings. Stable mild age related neuro degenerative changes reiterated as compared to prior CT 10/25/2018.
[2019-01-02 16:02] LABS: URINE BACTERIA MANY (<OCC); URINE BILIRUBIN NEGATIVE (NEGATIVE); URINE BLOOD MODERATE (NEGATIVE); URINE CLARITY TURBID (Clear); URINE COLOR YELLOW (YELLOW); URINE GLUCOSE (UA) NEG (NEGATIVE); URINE LEUKOCYTE ESTERASE LARGE Leu/uL (Negative); URINE PROTEIN 30 mg/dL (NEGATIVE); URINE UROBILINOGEN 0.2-1.0 mg/dL (0.2-1.0)
[2019-01-02] MEDS ORDERED: Sodium Chloride 0.9% 1,000 ML IV STA (16:17)
--- NOTE | 2019-01-02 16:28 | CARD ---
APPROVED REPORT Date of service: 01/02/2019 EKG Measurement Heart [id number] <Conclusion> Normal sinus rhythm Possible Left atrial enlargement Borderline ECG
--- NOTE | 2019-01-02 16:30 | RAD ---
Date of service: 01/02/2019 HISTORY: syncope COMPARISON: Portable chest 04/19/2018. TECHNIQUE: Chest PA and lateral views FINDINGS: LUNGS: No active pulmonary disease. PLEURA: No significant pleural effusion identified. No pneumothorax apparent. CARDIOVASCULAR: No aortic atherosclerotic calcification present. Normal cardiac size. No pulmonary vascular congestion. OSSEOUS STRUCTURES: No significant abnormalities. VISUALIZED UPPER ABDOMEN: Normal. OTHER FINDINGS: None. IMPRESSION: No interval acute cardiopulmonary disease appreciated.
[2019-01-02 16:54] LABS: INR 1.1; PROTHROMBIN TIME 12.1 Seconds (9.8-13.1)
[2019-01-02 16:56] LABS: PARTIAL THROMBOPLASTIN TIME 35.1 Seconds (25.6-37.1)
[2019-01-02 17:03] LABS: BARBITURATES, UR NEGATIVE (NEGATIVE); BENZODIAZEPINES, UR NEGATIVE (NEGATIVE); OPIATES, UR NEGATIVE (NEGATIVE); PHENCYCLIDINE, UR NEGATIVE (NEGATIVE)
[2019-01-02] MEDS ORDERED: Oxycodone/Acetaminophen 5/325 mg Tab PO PRN (23:08)
[2019-01-03 05:27] VITALS: RESP 20
[2019-01-03 05:56] LABS: HEMOGLOBIN 7.8 g/dL (12.0-18.0); MEAN CELL VOLUME 65.6 fl (80.0-94.0); MEAN CORPUSCULAR HEMOGLOBIN 19.9 pg (27.0-31.0); MEAN CORPUSCULAR HGB CONC 30.3 g/dL (33.0-37.0); RBC 3.94 Mil/uL (4.40-5.90); RED CELL DISTRIBUTION WIDTH 24.4 % (11.5-14.5); WHITE BLOOD COUNT 4.3 K/uL (4.8-10.8)
[2019-01-03] MEDS: Oxycodone/Acetaminophen 5/325 mg Tab PO PRN ×2 (05:59→12:21)
[2019-01-03 06:11] LABS: ALB/GLOB RATIO 1.1 (1.0-2.1); ALBUMIN 3.6 g/dL (3.5-5.0); ALT/SGPT 54 U/L (21-72); AST/SGOT 61 U/L (17-59); BLOOD UREA NITROGEN 20 mg/dl (9-20); CALCIUM 8.3 mg/dL (8.4-10.2); GFR NON-AFRICAN AMERICAN > 60
[2019-01-03 11:13] LABS: IRON 25 ug/dL (49-181)
[2019-01-03] MEDS ORDERED: Lidocaine 5% Patch TD SCH (11:15)
[2019-01-03 11:22] LABS: % IRON SATURATION 6 % (20-55); TOTAL IRON BINDING CAPACITY 424 ug/dL (250-450)
[2019-01-03 11:51] LABS: FERRITIN 6.1 ng/Ml (17.9-464)
--- NOTE | 2019-01-03 12:25 | CP.PCM.HP ---
History of Present Illness - History of Present Illness History of Present Illness: pt admitted for syncope and anemia. was recently in [facility] for marco a.e at present w/o ddiznes. no f/,c n/v/d all bw ntoed. hgb dropped since last night.pt has h/o chronic back pain as well. last pm/r visit over 1 month ago Present on Admission - Present on Admission Any Indicators Present on Admission: No Review of Systems - Constitutional Constitutional: As Per HPI, Fever - Neurological Neurological: As Per HPI, Syncope Past Patient History - Infectious Disease Hx of Infectious Diseases: None - Past Medical History & Family History Past Medical History?: Yes - Past Social History Smoking Status: Never Smoked - CARDIAC Hx Cardiac Disorders: Yes Hx Hypertension: Yes - PULMONARY Hx Respiratory Disorders: No Hx Tuberculosis: No - NEUROLOGICAL Hx Seizures: No - HEENT Hx HEENT Problems: No - RENAL Hx Chronic Kidney Disease: No - ENDOCRINE/METABOLIC Hx Endocrine Disorders: No - HEMATOLOGICAL/ONCOLOGICAL Hx Blood Disorders: No Hx AIDS: No Hx Human Immunodeficiency Virus (HIV): No - INTEGUMENTARY Hx Dermatological Problems: No - MUSCULOSKELETAL/RHEUMATOLOGICAL Hx Musculoskeletal Disorders: Yes Hx Back Pain: Yes Hx Falls: Yes - GASTROINTESTINAL Hx Gastrointestinal Disorders: No - GENITOURINARY/GYNECOLOGICAL Hx Genitourinary Disorders: Yes Hx Sexually Transmitted Disorders: No Hx Urinary Tract Infection: Yes - PSYCHIATRIC Hx Psychophysiologic Disorder: No Hx Substance Use: Yes - SURGICAL HISTORY Hx Surgeries: Yes Hx Musculoskeletal Surgery: Yes Other/Comment: PROSTATECTOMY, Right foot surgery, back surgery - ANESTHESIA Hx Anesthesia: Yes Hx Anesthesia Reactions: No Hx Malignant Hyperthermia: No Has any member of the family had a problem w/ anesthesia?: No Meds Allergies/Adverse Reactions: Allergies Allergy/AdvReac Type Severity Reaction Status Date / Time No Known Allergies Allergy Verified 01/02/19 13:38 Physical Exam - Constitutional Appears: Well, Non-toxic, No Acute Distress - Head Exam Head Exam: ATRAUMATIC, NORMAL INSPECTION, NORMOCEPHALIC - Eye Exam Eye Exam: EOMI, Normal appearance, PERRL Pupil Exam: NORMAL ACCOMODATION, PERRL - ENT Exam ENT Exam: Mucous Membranes Moist, Normal Exam - Neck Exam Neck exam: Positive for: Normal Inspection - Respiratory Exam Respiratory Exam: Clear to Auscultation Bilateral, NORMAL BREATHING PATTERN - Cardiovascular Exam Cardiovascular Exam: REGULAR RHYTHM, RRR, +S1, +S2 - GI/Abdominal Exam GI & Abdominal Exam: Normal Bowel Sounds, Soft. absent: Tenderness - Extremities Exam Extremities exam: Positive for: full ROM, normal capillary refill, normal inspection, pedal pulses present - Back Exam Back exam: NORMAL INSPECTION - Neurological Exam Neurological exam: Alert, CN II-XII Intact, Normal Gait, Oriented x3, Reflexes Normal - Psychiatric Exam Psychiatric exam: Normal Affect, Normal Mood - Skin Skin Exam: Dry, Intact, Normal Color, Warm Results - Vital Signs Recent Vital Signs: Last Vital Signs Temp 97.7 F 01/03/19 08:34 Pulse 66 01/03/19 08:58 Resp 20 01/03/19 08:34 BP 148/76 01/03/19 08:58 Pulse Ox 99 01/03/19 08:34 - Labs Result Diagrams: 01/03/19 04:40 01/03/19 04:40 Labs: Laboratory Results - last 24 hr 01/02/19 01/02/19 01/02/19 13:43 14:14 14:14 WBC 11.2 H D RBC 4.16 L Hgb 8.2 L D Hct 27.3 L MCV 65.7 L D MCH 19.8 L MCHC 30.1 L RDW 24.9 H Plt Count 179 MPV 8.9 Neut % (Auto) 57.0 Lymph % (Auto) 29.6 Coal % (Auto) 7.2 Eos % (Auto) 5.6 H Baso % (Auto) 0.6 Neut # (Auto) 6.4 Lymph # (Auto) 3.3 Coal # (Auto) 0.8 Eos # (Auto) 0.6 Baso # (Auto) 0.1 PT INR APTT Sodium 138 Potassium 4.3 Chloride 103 Carbon Dioxide 23 Anion Gap 16 BUN 23 H Creatinine 0.9 Est GFR ( Amer) > 60 Est GFR (Non-Af Amer) > 60 POC Glucose (mg/dL) 109 Random Glucose 118 H Calcium 8.6 Phosphorus 3.6 Magnesium 2.1 Iron TIBC % Saturation Ferritin Total Bilirubin 0.5 AST 78 H D ALT 65 Alkaline Phosphatase 147 H D Troponin I < 0.0120 Total Protein 7.9 Albumin 4.3 Globulin 3.6 Albumin/Globulin Ratio 1.2 Vitamin B12 Urine Color Urine Clarity Urine pH Ur Specific [place] Urine Protein Urine Glucose (UA) Urine Ketones Urine Blood Urine Nitrate Urine Bilirubin Urine Urobilinogen Ur Leukocyte Esterase Urine RBC (Auto) Urine Microscopic WBC Urine Bacteria Urine Opiates Screen Urine Methadone Screen Ur Barbiturates Screen Ur Phencyclidine Scrn Ur Amphetamines Screen U Benzodiazepines Scrn U Oth Cocaine Metabols U Cannabinoids Screen Alcohol, Quantitative Blood Type Antibody Screen Crossmatch BBK History Checked 01/02/19 01/02/19 01/02/19 15:46 16:30 16:30 WBC RBC Hgb Hct MCV MCH MCHC RDW Plt Count MPV Neut % (Auto) Lymph % (Auto) [place] % (Auto) Eos % (Auto) Baso % (Auto) Neut # (Auto) Lymph # (Auto) [place] # (Auto) Eos # (Auto) Baso # (Auto) PT 12.1 INR 1.1 APTT 35.1 Sodium Potassium Chloride Carbon Dioxide Anion Gap BUN Creatinine Est GFR ( Amer) Est GFR (Non-Af Amer) POC Glucose (mg/dL) Random Glucose Calcium Phosphorus Magnesium Iron TIBC % Saturation Ferritin Total Bilirubin AST ALT Alkaline Phosphatase Troponin I Total Protein Albumin Globulin Albumin/Globulin Ratio Vitamin B12 Urine Color Yellow Urine Clarity Turbid Urine pH 5.0 Ur Specific [place] 1.016 Urine Protein 30 Urine Glucose (UA) Neg Urine Ketones Negative Urine Blood Moderate Urine Nitrate Negative Urine Bilirubin Negative Urine Urobilinogen 0.2-1.0 Ur Leukocyte Esterase Large Urine RBC (Auto) 127 H Urine Microscopic WBC 1433 H Urine Bacteria Many H Urine Opiates Screen Urine Methadone Screen Ur Barbiturates Screen Ur Phencyclidine Scrn Ur Amphetamines Screen U Benzodiazepines Scrn U Oth Cocaine Metabols U Cannabinoids Screen Alcohol, Quantitative Blood Type O POSITIVE Antibody Screen Negative Crossmatch See Detail BBK History Checked Patient has bt 01/02/19 01/02/19 01/03/19 16:43 16:58 04:40 WBC 4.3 L D RBC 3.94 L Hgb 7.8 L Hct 25.8 L MCV 65.6 L MCH 19.9 L MCHC 30.3 L RDW 24.4 H Plt Count 109 L D MPV Neut % (Auto) Lymph % (Auto) [place] % (Auto) Eos % (Auto) Baso % (Auto) Neut # (Auto) Lymph # (Auto) [place] # (Auto) Eos # (Auto) Baso # (Auto) PT INR APTT Sodium Potassium Chloride Carbon Dioxide Anion Gap BUN Creatinine Est GFR ( Amer) Est GFR (Non-Af Amer) POC Glucose (mg/dL) Random Glucose Calcium Phosphorus Magnesium Iron TIBC % Saturation Ferritin Total Bilirubin AST ALT Alkaline Phosphatase Troponin I Total Protein Albumin Globulin Albumin/Globulin Ratio Vitamin B12 Urine Color Urine Clarity Urine pH Ur Specific [place] Urine Protein Urine Glucose (UA) Urine Ketones Urine Blood Urine Nitrate Urine Bilirubin Urine Urobilinogen Ur Leukocyte Esterase Urine RBC (Auto) Urine Microscopic WBC Urine Bacteria Urine Opiates Screen Negative Urine Methadone Screen Negative Ur Barbiturates Screen Negative Ur Phencyclidine Scrn Negative Ur Amphetamines Screen Negative U Benzodiazepines Scrn Negative U Oth Cocaine Metabols Negative U Cannabinoids Screen Negative Alcohol, Quantitative < 10 Blood Type Antibody Screen Crossmatch BBK History Checked 01/03/19 01/03/19 01/03/19 04:40 10:50 10:50 WBC RBC Hgb Hct MCV MCH MCHC RDW Plt Count MPV Neut % (Auto) Lymph % (Auto) [place] % (Auto) Eos % (Auto) Baso % (Auto) Neut # (Auto) Lymph # (Auto) [place] # (Auto) Eos # (Auto) Baso # (Auto) PT INR APTT Sodium 137 Potassium 4.2 Chloride 103 Carbon Dioxide 28 Anion Gap 10 BUN 20 Creatinine 0.8 Est GFR ( Amer) > 60 Est GFR (Non-Af Amer) > 60 POC Glucose (mg/dL) Random Glucose 93 Calcium 8.3 L Phosphorus Magnesium Iron 25 L TIBC 424 % Saturation 6 L Ferritin 6.1 L Total Bilirubin 0.5 AST 61 H D ALT 54 Alkaline Phosphatase 115 Troponin I 0.0150 Total Protein 6.7 Albumin 3.6 Globulin 3.2 Albumin/Globulin Ratio 1.1 Vitamin B12 597 Urine Color Urine Clarity Urine pH Ur Specific [place] Urine Protein Urine Glucose (UA) Urine Ketones Urine Blood Urine Nitrate Urine Bilirubin Urine Urobilinogen Ur Leukocyte Esterase Urine RBC (Auto) Urine Microscopic WBC Urine Bacteria Urine Opiates Screen Urine Methadone Screen Ur Barbiturates Screen Ur Phencyclidine Scrn Ur Amphetamines Screen U Benzodiazepines Scrn U Oth Cocaine Metabols U Cannabinoids Screen Alcohol, Quantitative Blood Type Antibody Screen Crossmatch BBK History Checked Assessment & Plan (1) DVT prophylaxis Assessment and Plan: scd nad aehose ambulation Status: Acute (2) Chronic back pain Assessment and Plan: percocet prn toradol lidoderm, flexeril ambulation outpt f/u Status: Acute (3) Syncope Assessment and Plan: tele monitoring likely r/t anemia Status: Acute (4) Urinary tract infection Assessment and Plan: rocephin, f/u c/s Status: Acute (5) Symptomatic anemia Assessment and Plan: 1 unit prbc f/u bw monitor labs [facility] cause of syncope Status: Acute Decision To Admit - Pt Status Changed To: Hospital Disposition Of: Observation - . Bed Request Type: Telemetry Admitting Physician: Daniela Ballesteros
[2019-01-03 12:51] VITALS: BP 159/72; PULSE 75; TEMP 98.1; O2SAT 98
[2019-01-03 23:04] LABS: FOLATE > 20.0 ng/mL
--- NOTE | 2019-01-04 11:24 | CP.PCM.DIS ---
Provider - Provider Date of Admission: 01/02/19 18:05 Attending physician: Daniela Ballesteros MD Time Spent in preparation of Discharge (in minutes): 15 Diagnosis - Discharge Diagnosis (1) DVT prophylaxis Status: Acute (2) Chronic back pain Status: Acute (3) Syncope Status: Acute (4) Urinary tract infection Status: Acute (5) Symptomatic anemia Status: Acute Hospital Course - Lab Results Lab Results: Micro Results 01/02/19 16:45 Urine,Clean Catch Urine Culture - Preliminary Gram Negative Alfonso Most Recent Lab Values WBC 4.3 K/uL (4.8-10.8) L D 01/03/19 04:40 RBC 3.94 Mil/uL (4.40-5.90) L 01/03/19 04:40 Hgb 7.8 g/dL (12.0-18.0) L 01/03/19 04:40 Hct 25.8 % (35.0-51.0) L 01/03/19 04:40 MCV 65.6 fl (80.0-94.0) L 01/03/19 04:40 MCH 19.9 pg (27.0-31.0) L 01/03/19 04:40 MCHC 30.3 g/dL (33.0-37.0) L 01/03/19 04:40 RDW 24.4 % (11.5-14.5) H 01/03/19 04:40 Plt Count 109 K/uL (130-400) L D 01/03/19 04:40 MPV 8.9 fl (7.2-11.7) 01/02/19 14:14 Neut % (Auto) 57.0 % (50.0-75.0) 01/02/19 14:14 Lymph % (Auto) 29.6 % (20.0-40.0) 01/02/19 14:14 [place] % (Auto) 7.2 % (0.0-10.0) 01/02/19 14:14 Eos % (Auto) 5.6 % (0.0-4.0) H 01/02/19 14:14 Baso % (Auto) 0.6 % (0.0-2.0) 01/02/19 14:14 Neut # (Auto) 6.4 K/uL (1.8-7.0) 01/02/19 14:14 Lymph # (Auto) 3.3 K/uL (1.0-4.3) 01/02/19 14:14 [place] # (Auto) 0.8 K/uL (0.0-0.8) 01/02/19 14:14 Eos # (Auto) 0.6 K/uL (0.0-0.7) 01/02/19 14:14 Baso # (Auto) 0.1 K/uL (0.0-0.2) 01/02/19 14:14 PT 12.1 Seconds (9.8-13.1) 01/02/19 16:30 INR 1.1 01/02/19 16:30 APTT 35.1 Seconds (25.6-37.1) 01/02/19 16:30 Sodium 137 mmol/l (132-148) 01/03/19 04:40 Potassium 4.2 MMOL/L (3.6-5.0) 01/03/19 04:40 Chloride 103 mmol/L (98-107) 01/03/19 04:40 Carbon Dioxide 28 mmol/L (22-30) 01/03/19 04:40 Anion Gap 10 (10-20) 01/03/19 04:40 BUN 20 mg/dl (9-20) 01/03/19 04:40 Creatinine 0.8 mg/dl (0.8-1.5) 01/03/19 04:40 Est GFR ( Amer) > 60 01/03/19 04:40 Est GFR (Non-Af Amer) > 60 01/03/19 04:40 POC Glucose (mg/dL) 109 mg/dL (65-110) 01/02/19 13:43 Random Glucose 93 mg/dL (75-110) 01/03/19 04:40 Calcium 8.3 mg/dL (8.4-10.2) L 01/03/19 04:40 Phosphorus 3.6 mg/dl (2.5-4.5) 01/02/19 14:14 Magnesium 2.1 MG/DL (1.6-2.3) 01/02/19 14:14 Iron 25 ug/dL (49-181) L 01/03/19 10:50 TIBC 424 ug/dL (250-450) 01/03/19 10:50 % Saturation 6 % (20-55) L 01/03/19 10:50 Transferrin 295.94 mg/dL (206-381) 01/03/19 10:50 Ferritin 6.1 ng/Ml (17.9-464) L 01/03/19 10:50 Total Bilirubin 0.5 mg/dl (0.2-1.3) 01/03/19 04:40 AST 61 U/L (17-59) H D 01/03/19 04:40 ALT 54 U/L (21-72) 01/03/19 04:40 Alkaline Phosphatase 115 U/L (38-126) 01/03/19 04:40 Troponin I 0.0150 ng/mL (0.00-0.120) 01/03/19 04:40 Total Protein 6.7 G/DL (6.3-8.2) 01/03/19 04:40 Albumin 3.6 g/dL (3.5-5.0) 01/03/19 04:40 Globulin 3.2 gm/dL (2.2-3.9) 01/03/19 04:40 Albumin/Globulin Ratio 1.1 (1.0-2.1) 01/03/19 04:40 Vitamin B12 597 pg/mL (239-931) 01/03/19 10:50 Folate > 20.0 ng/mL 01/03/19 10:50 Urine Color Yellow (YELLOW) 01/02/19 15:46 Urine Clarity Turbid (Clear) 01/02/19 15:46 Urine pH 5.0 (5.0-8.0) 01/02/19 15:46 Ur Specific [place] 1.016 (1.003-1.030) 01/02/19 15:46 Urine Protein 30 mg/dL (NEGATIVE) 01/02/19 15:46 Urine Glucose (UA) Neg mg/dL (NEGATIVE) 01/02/19 15:46 Urine Ketones Negative mg/dL (NEGATIVE) 01/02/19 15:46 Urine Blood Moderate (NEGATIVE) 01/02/19 15:46 Urine Nitrate Negative (NEGATIVE) 01/02/19 15:46 Urine Bilirubin Negative (NEGATIVE) 01/02/19 15:46 Urine Urobilinogen 0.2-1.0 mg/dL (0.2-1.0) 01/02/19 15:46 Ur Leukocyte Esterase Large Doc/uL (Negative) 01/02/19 15:46 Urine RBC (Auto) 127 /hpf (0-3) H 01/02/19 15:46 Urine Microscopic WBC 1433 /hpf (0-5) H 01/02/19 15:46 Urine Bacteria Many (<OCC) H 01/02/19 15:46 Urine Opiates Screen Negative (NEGATIVE) 01/02/19 16:43 Urine Methadone Screen Negative (NEGATIVE) 01/02/19 16:43 Ur Barbiturates Screen Negative (NEGATIVE) 01/02/19 16:43 Ur Phencyclidine Scrn Negative (NEGATIVE) 01/02/19 16:43 Ur Amphetamines Screen Negative (NEGATIVE) 01/02/19 16:43 U Benzodiazepines Scrn Negative (NEGATIVE) 01/02/19 16:43 U Oth Cocaine Metabols Negative (NEGATIVE) 01/02/19 16:43 U Cannabinoids Screen Negative (NEGATIVE) 01/02/19 16:43 Alcohol, Quantitative < 10 mg/dl (0-10) 01/02/19 16:58 Blood Type O POSITIVE 01/02/19 16:30 Antibody Screen Negative 01/02/19 16:30 Crossmatch See Detail 01/02/19 16:30 BBK History Checked Patient has bt 01/02/19 16:30 - Hospital Course Hospital Course: pt admitted for syncope and anemia. c/o chronic back pain. signed ama when no further narcotics given. Discharge Exam - Head Exam Head Exam: ATRAUMATIC, NORMAL INSPECTION, NORMOCEPHALIC Discharge Plan - Follow Up Plan Condition: FAIR Disposition: AGAINST MEDICAL ADVICE Additional Instructions: final dx-anemia, syncope, chronic pain signed ama after requesting and being refused iv narcotics did not receive blood as he signed ama rec'd 2 doses rocephin for uti. f/u outpt.
== END 2019-01-03 14:20 | disposition left against medical advice (07) ==
LOC: H.ER 13:23 → H.ERHOLD 18:05 → H.TEL 21:01
PROVIDERS: ADMIT Family Medicine; ATTEND Family Medicine
DX: D64.9 Anemia, unspecified (principal); G89.29 Other chronic pain; I10 Essential (primary) hypertension; N39.0 Urinary tract infection, site not specified; R55 Syncope and collapse
CPT/HCPCS: 36415; 70450; 71046; 80053; 81003; 82607; 82728; 82746; 82948; 83735; 84100; 84466; 84484; 85025; 85027; 85610; 85730; 86850; 86900; 86920; 87086; 93005; 96374; 99285; G0378; G0480; J0696; J1885; J2405; J7030

== ENCOUNTER 2019-01-04 13:55 | Observation (INO) | payer MEDICARE ==
[2019-01-04 13:56] VITALS: BMI 22.6
--- NOTE | 2019-01-04 15:05 | ED PDOC ---
HPI: Altered Mental Status Time Seen by Provider: 01/04/19 14:48 Chief Complaint (Nursing): Altered Mental Status Chief Complaint (Provider): Altered Mental Status History Per: Patient History/Exam Limitations: None Onset/Duration Of Symptoms: Hrs (x5) Additional Complaint(s): 68 years old male with history of hypertension brought to ER by EMS for evaluation of altered mental status onset 5 hours ago. Patient reports all he remembers was that he was cooking and then woke up in the ED. He state a friend witnessed the episode. Patient states he fainted also 2 days ago, was seen here in this ED and was admitted. 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 Patient denies chest pain and shortness of breath. PMD: [place] Past Medical History Reviewed: Historical Data, Nursing Documentation, Vital Signs Vital Signs: Last Vital Signs Temp 97 F L 01/04/19 13:59 Pulse 99 H 01/04/19 13:59 Resp 16 01/04/19 13:59 BP 158/88 H 01/04/19 13:59 Pulse Ox 94 L 01/04/19 13:59 Primary Care Provider: Procedure,Nonphys - Medical History PMH: Back Problems, HTN Denies: Diabetes, Hepatitis, HIV, Chronic Kidney Disease, Seizures, Sexually Transmitted Disease - Surgical History Surgical History: No Surg Hx - Family History Family History: States: Unknown Family Hx - Social History Drugs: Other (Heroin) - Immunization History Hx Tetanus Toxoid Vaccination: No Hx Influenza Vaccination: No Hx Pneumococcal Vaccination: No - Allergies Allergies/Adverse Reactions: Allergies Allergy/AdvReac Type Severity Reaction Status Date / Time No Known Allergies Allergy Verified 01/02/19 13:38 Review of Systems ROS Statement: Except As Marked, All Systems Reviewed And Found Negative Cardiovascular: Negative for: Chest Pain Respiratory: Negative for: Shortness of Breath Neurological: Positive for: Altered Mental Status Physical Exam - Reviewed Nursing Documentation Reviewed: Yes Vital Signs Reviewed: Yes - Physical Exam Appears: Positive for: Well, No Acute Distress Head Exam: Positive for: ATRAUMATIC, NORMOCEPHALIC Skin: Positive for: Normal Color, Warm, Dry Eye Exam: Positive for: Normal appearance, EOMI, PERRL ENT: Positive for: Normal ENT Inspection Neck: Positive for: Normal, Painless ROM, Supple Cardiovascular/Chest: Positive for: Regular Rate, Rhythm. Negative for: Murmur Respiratory: Positive for: Normal Breath Sounds. Negative for: Respiratory Distress Gastrointestinal/Abdominal: Positive for: Normal Exam, Soft. Negative for: Tenderness Back: Positive for: Normal Inspection. Negative for: L CVA Tenderness, R CVA Tenderness Extremity: Positive for: Normal ROM. Negative for: Pedal Edema, Swelling Neurological/Psych: Positive for: Awake, Alert, Oriented (x3) - ECG O2 Sat by Pulse Oximetry: 94 (RA) Pulse Ox Interpretation: Abnormal - Radiology X-Ray: Interpreted by Me X-Ray Interpretation: No Acute Disease Medical Decision Making Medical Decision Making: Time: 1500 Initial plan: --CT Head W/O Contrast --EKG --Alcohol serum --CMP --Drug screen --Troponin --Urine dipstick --CBC --PTT --PT --CXR --Urinalysis ------- Scribe Attestation: Documented by Janine Mendoza acting as a scribe for Rena Crawley MD. Provider Scribe Attestation: All medical record entries made by the Scribe were at my direction and personally dictated by me. I have reviewed the chart and agree that the record accurately reflects my personal performance of the history, physical exam, medical decision making, and the department course for this patient. I have also personally directed, reviewed, and agree with the discharge instructions and disposition. Disposition - Disposition Forms: [employer] (German)
[2019-01-04 15:47] LABS: BASO % 0.5 % (0.0-2.0); EOS # 0.3 K/uL (0.0-0.7); EOS % 4.7 % (0.0-4.0); HEMOGLOBIN 7.9 g/dL (12.0-18.0); LYMPH # 0.8 K/uL (1.0-4.3); LYMPH % 13.9 % (20.0-40.0); MEAN CELL VOLUME 65.9 fl (80.0-94.0); MEAN CORPUSCULAR HEMOGLOBIN 20.1 pg (27.0-31.0); MEAN CORPUSCULAR HGB CONC 30.4 g/dL (33.0-37.0); MEAN PLATELET VOLUME 9.3 fl (7.2-11.7); MONO # 0.5 K/uL (0.0-0.8); MONO % 9.2 % (0.0-10.0); NEUT # 4.1 K/uL (1.8-7.0); NEUT % 71.7 % (50.0-75.0); RBC 3.94 Mil/uL (4.40-5.90); RED CELL DISTRIBUTION WIDTH 24.7 % (11.5-14.5); WHITE BLOOD COUNT 5.8 K/uL (4.8-10.8)
[2019-01-04 15:50] LABS: INR 1.1; PROTHROMBIN TIME 12.4 Seconds (9.8-13.1)
[2019-01-04 15:51] LABS: SQUAMOUS EPITHIAL < 1 /hpf (0-5); URINE BILIRUBIN NEGATIVE (NEGATIVE); URINE BLOOD SMALL (NEGATIVE); URINE CLARITY CLOUDY (Clear); URINE COLOR YELLOW (YELLOW); URINE GLUCOSE (UA) NEG (NEGATIVE); URINE LEUKOCYTE ESTERASE MOD Leu/uL (Negative); URINE PROTEIN 30 mg/dL (NEGATIVE); URINE UROBILINOGEN 0.2-1.0 mg/dL (0.2-1.0)
[2019-01-04 15:53] LABS: PARTIAL THROMBOPLASTIN TIME 35.8 Seconds (25.6-37.1)
--- NOTE | 2019-01-04 16:00 | RAD ---
Date of service: 01/04/2019 HISTORY: Syncope COMPARISON: 01/02/2019. FINDINGS: LUNGS: No active pulmonary disease. PLEURA: No significant pleural effusion identified, no pneumothorax apparent. CARDIOVASCULAR: No atherosclerotic calcification present Normal. OSSEOUS STRUCTURES: No significant abnormalities. VISUALIZED UPPER ABDOMEN: Normal. OTHER FINDINGS: None. IMPRESSION: No active disease. No significant interval change compared to the prior examination(s).
[2019-01-04 16:01] LABS: BARBITURATES, UR NEGATIVE (NEGATIVE); BENZODIAZEPINES, UR NEGATIVE (NEGATIVE); OPIATES, UR POSITIVE (NEGATIVE); PHENCYCLIDINE, UR NEGATIVE (NEGATIVE)
[2019-01-04] MEDS ORDERED: cefTRIAXone (Rocephin) 1 gm Inj ONE (16:03)
--- NOTE | 2019-01-04 16:10 | CT ---
Date of service: 01/04/2019 PROCEDURE: CT HEAD WITHOUT CONTRAST. HISTORY: Syncope COMPARISON: 10/25/2018, 01/02/2019. Serial CT scans of the head. TECHNIQUE: Axial computed tomography images were obtained through the head/brain without intravenous contrast. Supplemental Coronal and Sagittal projections created and reviewed. Radiation dose: Total exam DLP = 797.55 mGy-cm. This CT exam was performed using one or more of the following dose reduction techniques: Automated exposure control, adjustment of the mA and/or kV according to patient size, and/or use of iterative reconstruction technique. FINDINGS: HEMORRHAGE: No intracranial hemorrhage. BRAIN: No mass effect or edema. Cortical and cerebellar atrophy, periventricular small vessel disease. VENTRICLES: Unremarkable. No hydrocephalus. CALVARIUM: Unremarkable. PARANASAL SINUSES: Unremarkable as visualized. No significant inflammatory changes. MASTOID AIR CELLS: Unremarkable as visualized. No inflammatory changes. OTHER FINDINGS: None. IMPRESSION: No acute intracranial abnormalities. No significant findings to account for the clinical presentation. No significant interval change compared to the prior examination(s).
[2019-01-04 16:22] LABS: ALB/GLOB RATIO 1.3 (1.0-2.1); ALBUMIN 4.3 g/dL (3.5-5.0); ALT/SGPT 51 U/L (21-72); AST/SGOT 69 U/L (17-59); BLOOD UREA NITROGEN 27 mg/dl (9-20); CALCIUM 8.5 mg/dL (8.4-10.2); GFR NON-AFRICAN AMERICAN > 60
--- NOTE | 2019-01-04 19:36 | CP.PCM.CON ---
History of Present Illness - History of Present Illness History of Present Illness: I was asked to see patient by Brendan Troy and Johann Patient seen 01/04/191933 Patient is a 68 year old male iwth HTN chronci anemia heroin abuse who presents with syncope. Patient states he was cooking hamburgers and standing for a long time when his legs felt weak. He states he passed out. There was no head trauma. He denies chest pain or palpitations. No seizure activity noted. Patient was found to be anemic and is scheduled for blood transfusion. Patient uses heroin and last use was yesterday Review of Systems - Constitutional Constitutional: absent: As Per HPI, Anorexia, Chills, Daytime Sleepiness, Excessive Sweating, Fatigue, Fever, Frequent Falls, Headache, Increased Appetite, Lethargy, Malaise, Night Sweats, Snoring, Sleep Apnea, Weight Gain, Weight Loss, Weakness, Other - EENT Eyes: absent: As Per HPI, Blind Spots, Blurred Vision, Change in Vision, Decreased Night Vision, Diplopia, Discharge, Dry Eye, Exophthalmos, Floaters, Irritation, Itchy Eyes, Loss of Peripheral Vision, Pain, Photophobia, Requires Corrective Lenses, Sees Flashes, Spots in Vision, Tunnel Vision, Other Visual Disturbances, Loss of Vision, Other Ears: absent: As Per HPI, Decreased Hearing, Ear Discharge, Ear Pain, Tinnitus, Abnormal Hearing, Disequilibrium, Dizziness, Other Nose/Mouth/Throat: absent: As Per HPI, Epistaxis, Nasal Congestion, Nasal Discharge, Nasal Obstruction, Nasal Trauma, Nose Pain, Post Nasal Drip, Sinus Pain, Sinus Pressure, Bleeding Gums, Change in Voice, Dental Pain, Dry Mouth, Dysphagia, Halitosis, Hoarsness, Lip Swelling, Mouth Lesions, Mouth Pain, Odynophagia, Sore Throat, Throat Swelling, Tongue Swelling, Facial Pain, Neck Pain, Neck Mass, Other - Cardiovascular Cardiovascular: Syncope - Respiratory Respiratory: absent: As Per HPI, Cough, Dyspnea, Hemoptysis, Dyspnea on Exertion, Wheezing, Snoring, Stridor, Pain on Inspiration, Chest Congestion, Excessive Mucous Production, Change in Mucous Color, Pain with Coughing, Other - Gastrointestinal Gastrointestinal: absent: As Per HPI, Abdominal Pain, Belching, Bloating, Change in Bowel Habits, Change in Stool Character, Coffee Ground Emesis, Constipation, Cramping, Diarrhea, Dyspepsia, Dysphagia, Early Satiety, Excessive Flatus, Fecal Incontinence, Heartburn, Hematemesis, Hematochezia, Loose Stools, Melena, Nausea, Odynophagia, Temesmus, Vomiting, Other - Genitourinary Genitourinary: absent: As Per HPI, Change in Urinary Stream, Difficulty Urinating, Dysuria, Flank Pain, Hematuria, Pyuria, Nocturia, Urinary Incontinence, Urinary Frequency, Urinary Hesitance, Urinary Urgency, Voiding Freq/Small Amts, Freq UTI, Hx Renal/Bladder Calculi, Hx /Renal Surgery, Bladder Distension, Other - Musculoskeletal Musculoskeletal: absent: As Per HPI, Abnormal Gait, Arthralgias, Atrophy, Back Pain, Deformity, Joint Swelling, Limited Range of Motion, Loss of Height, Muscle Cramps, Muscle Weakness, Myalgias, Neck Pain, Numbness, Radiating Pain into Limb, Stiffness, Tingling, Other - Integumentary Integumentary: absent: As Per HPI, Acne, Alopecia, Bleeding Lesions, Change in Hair, Change in Nails, Change in Pigmentation, Changing Lesions, Dry Skin, Daniel thema, Furuncle, Hirsutism, Lesions, New Lesions, Non-Healing Lesions, Photosensitivity, Pruritus, Rash, Skin Pain, Skin Ulcer, Sores, Striae, Swelling, Unusual Bruising, Wounds, Jaundice, Other - Neurological Neurological: absent: As Per HPI, Abnormal Gait, Abnormal Hearing, Abnormal Movements, Abnormal Speech, Behavioral Changes, Burning Sensations, Confusion, Convulsions, Disequilibrium, Dizziness, Numbness, Focal Weakness, Frequent Falls, Headaches, Lack of Coordination, Loss of Vision, Memory Loss, Paresthesias, Radicular Pain, Restless Legs, Sensory Deficit, Syncope, Tingling, Tremor, Vertigo, Weakness, Other Visual Disturbances, Other - Psychiatric Psychiatric: absent: As Per HPI, Abnormal Sleep Pattern, Anhedonia, Anxiety, Auditory Hallucinations, Behavioral Changes, Change in Appetite, Change in Libido, Confusion, Depression, Difficulty Concentrating, Hallucinations, Homicidal Ideation, Hopelessness, Irritability, Memory Loss, Mood Swings, Panic Attacks, Paranoia, Suicidal Ideation, Visual Hallucinations, Tactile Hallucinations, Other - Endocrine Endocrine: absent: As Per HPI, Change in Body Appearance, Change in Libido, Cold Intolorance, Deepening of Voice, Excessive Sweating, Fatigue, Flushing, Heat Intolorance, Increase in Ring/Shoe/Hat Size, Palpitations, Polydipsia, Polyphagia, Polyuria, Other - Hematologic/Lymphatic Hematologic: absent: As Per HPI, Easy Bleeding, Easy Bruising, Lymphadenopathy, Other Past Patient History - Infectious Disease Hx of Infectious Diseases: None - Past Medical History & Family History Past Medical History?: Yes - Past Social History Drugs: Other (Heroin) - CARDIAC Hx Hypertension: Yes - PULMONARY Hx Respiratory Disorders: No Hx Tuberculosis: No - NEUROLOGICAL Hx Seizures: No - HEENT Hx HEENT Problems: No - RENAL Hx Chronic Kidney Disease: No - ENDOCRINE/METABOLIC Hx Endocrine Disorders: No - HEMATOLOGICAL/ONCOLOGICAL Hx Human Immunodeficiency Virus (HIV): No - INTEGUMENTARY Hx Dermatological Problems: No - MUSCULOSKELETAL/RHEUMATOLOGICAL Hx Musculoskeletal Disorders: Yes Hx Back Pain: Yes Hx Falls: Yes - GASTROINTESTINAL Hx Gastrointestinal Disorders: No - GENITOURINARY/GYNECOLOGICAL Hx Sexually Transmitted Disorders: No - PSYCHIATRIC Hx Psychophysiologic Disorder: No Hx Substance Use: Yes - SURGICAL HISTORY Hx Surgeries: Yes Hx Musculoskeletal Surgery: Yes Other/Comment: PROSTATECTOMY, Right foot surgery, back surgery - ANESTHESIA Hx Anesthesia: Yes Hx Anesthesia Reactions: No Hx Malignant Hyperthermia: No Meds Allergies/Adverse Reactions: Allergies Allergy/AdvReac Type Severity Reaction Status Date / Time No Known Allergies Allergy Verified 01/02/19 13:38 - Medications Medications: Current Medications Ceftriaxone Sodium 1 gm/ (Sodium Chloride) 100 mls @ 100 mls/hr IVPB DAILY NICOLA; Protocol Lisinopril (Zestril) 20 mg PO DAILY NICOLA Physical Exam - Constitutional Appears: Non-toxic - Head Exam Head Exam: NORMAL INSPECTION - Eye Exam Eye Exam: Normal appearance - ENT Exam ENT Exam: Mucous Membranes Moist - Neck Exam Neck exam: Positive for: Full Rom, Normal Inspection - Respiratory Exam Respiratory Exam: NORMAL BREATHING PATTERN - Cardiovascular Exam Cardiovascular Exam: REGULAR RHYTHM - GI/Abdominal Exam GI & Abdominal Exam: Normal Bowel Sounds - Rectal Exam Rectal Exam: Deferred - Extremities Exam Extremities exam: Positive for: full ROM, normal capillary refill, normal inspection, pedal pulses present. Negative for: joint swelling, pedal edema, tenderness - Back Exam Back exam: NORMAL INSPECTION - Neurological Exam Neurological exam: Alert, Oriented x3 - Psychiatric Exam Psychiatric exam: Normal Affect - Skin Skin Exam: Normal Color Results - Vital Signs Recent Vital Signs: Last Vital Signs Temp 97 F L 01/04/19 13:59 Pulse 99 H 01/04/19 13:59 Resp 16 01/04/19 13:59 BP 158/88 H 01/04/19 13:59 Pulse Ox 94 L 01/04/19 15:37 - Labs Result Diagrams: 01/04/19 15:36 01/04/19 15:36 Labs: Laboratory Results - last 24 hr 01/04/19 01/04/19 01/04/19 15:36 15:36 15:36 WBC 5.8 RBC 3.94 L Hgb 7.9 L Hct 26.0 L MCV 65.9 L MCH 20.1 L MCHC 30.4 L RDW 24.7 H Plt Count 156 MPV 9.3 Neut % (Auto) 71.7 Lymph % (Auto) 13.9 L [place] % (Auto) 9.2 Eos % (Auto) 4.7 H Baso % (Auto) 0.5 Neut # (Auto) 4.1 Lymph # (Auto) 0.8 L [place] # (Auto) 0.5 Eos # (Auto) 0.3 Baso # (Auto) 0.0 PT 12.4 INR 1.1 APTT 35.8 Sodium 136 Potassium 5.1 H Chloride 102 Carbon Dioxide 26 Anion Gap 13 BUN 27 H Creatinine 0.8 Est GFR ( Amer) > 60 Est GFR (Non-Af Amer) > 60 Random Glucose 95 Calcium 8.5 Total Bilirubin 0.5 AST 69 H ALT 51 Alkaline Phosphatase 111 Troponin I < 0.0120 Total Protein 7.7 Albumin 4.3 Globulin 3.4 Albumin/Globulin Ratio 1.3 Urine Color Urine Clarity Urine pH Ur Specific [place] Urine Protein Urine Glucose (UA) Urine Ketones Urine Blood Urine Nitrate Urine Bilirubin Urine Urobilinogen Ur Leukocyte Esterase Urine RBC (Auto) Urine Microscopic WBC Ur Squamous Epith Cells Hyaline Casts Urine Opiates Screen Urine Methadone Screen Ur Barbiturates Screen Ur Phencyclidine Scrn Ur Amphetamines Screen U Benzodiazepines Scrn U Oth Cocaine Metabols U Cannabinoids Screen Alcohol, Quantitative < 10 Blood Type Antibody Screen Crossmatch BBK History Checked 01/04/19 01/04/19 01/04/19 15:36 15:36 18:25 WBC RBC Hgb Hct MCV MCH MCHC RDW Plt Count MPV Neut % (Auto) Lymph % (Auto) [place] % (Auto) Eos % (Auto) Baso % (Auto) Neut # (Auto) Lymph # (Auto) [place] # (Auto) Eos # (Auto) Baso # (Auto) PT INR APTT Sodium Potassium Chloride Carbon Dioxide Anion Gap BUN Creatinine Est GFR ( Amer) Est GFR (Non-Af Amer) Random Glucose Calcium Total Bilirubin AST ALT Alkaline Phosphatase Troponin I Total Protein Albumin Globulin Albumin/Globulin Ratio Urine Color Yellow Urine Clarity Cloudy Urine pH 6.0 Ur Specific [place] 1.020 Urine Protein 30 Urine Glucose (UA) Neg Urine Ketones Negative Urine Blood Small Urine Nitrate Negative Urine Bilirubin Negative Urine Urobilinogen 0.2-1.0 Ur Leukocyte Esterase Mod Urine RBC (Auto) 16 H Urine Microscopic WBC 111 H Ur Squamous Epith Cells < 1 Hyaline Casts 6-10 H Urine Opiates Screen Positive H Urine Methadone Screen Negative Ur Barbiturates Screen Negative Ur Phencyclidine Scrn Negative Ur Amphetamines Screen Negative U Benzodiazepines Scrn Negative U Oth Cocaine Metabols Negative U Cannabinoids Screen Negative Alcohol, Quantitative Blood Type O POSITIVE Antibody Screen Negative Crossmatch See Detail BBK History Checked Patient has bt - EKG Data EKG Interpreted by: Myself EKG shows normal: Sinus rhythm Assessment & Plan (1) Syncope Assessment and Plan: unclear etiology. unlikley cardiac in origin. no evidence of facial or body trauma. can monitor receck EKG, otherwise sched outpatient monitor. schedule othostatics. Status: Acute (2) Symptomatic anemia Assessment and Plan: possible cause of symptoms. follow hgb, transfuse as necessary Status: Acute
[2019-01-05] MEDS ORDERED: Lidocaine 5% Patch TD ONE ×2 (03:34→07:39)
[2019-01-05 05:31] LABS: BASO % 0.2 % (0.0-2.0); EOS # 0.2 K/uL (0.0-0.7); EOS % 5.2 % (0.0-4.0); HEMOGLOBIN 9.3 g/dL (12.0-18.0); LYMPH # 0.6 K/uL (1.0-4.3); LYMPH % 13.4 % (20.0-40.0); MEAN CELL VOLUME 66.8 fl (80.0-94.0); MEAN CORPUSCULAR HEMOGLOBIN 20.6 pg (27.0-31.0); MEAN CORPUSCULAR HGB CONC 30.9 g/dL (33.0-37.0); MONO # 0.4 K/uL (0.0-0.8); MONO % 10.2 % (0.0-10.0); NEUT # 3.1 K/uL (1.8-7.0); RBC 4.53 Mil/uL (4.40-5.90); RED CELL DISTRIBUTION WIDTH 25.6 % (11.5-14.5); WHITE BLOOD COUNT 4.3 K/uL (4.8-10.8)
[2019-01-05 05:41] LABS: ALB/GLOB RATIO 1.2 (1.0-2.1); ALT/SGPT 46 U/L (21-72); AST/SGOT 57 U/L (17-59); BLOOD UREA NITROGEN 20 mg/dl (9-20); CALCIUM 8.8 mg/dL (8.4-10.2); GFR NON-AFRICAN AMERICAN > 60
[2019-01-05 07:46] VITALS: BP 146/75; PULSE 67; RESP 18; TEMP 97.6; O2SAT 100
--- NOTE | 2019-01-05 11:59 | CARD ---
APPROVED REPORT Date of service: 01/04/2019 EKG Measurement Heart [id number] <Conclusion> Normal sinus rhythm Possible Left atrial enlargement Borderline ECG
--- NOTE | 2019-01-05 12:29 | CP.PCM.HP ---
Past Patient History - Infectious Disease Hx of Infectious Diseases: None - Past Medical History & Family History Past Medical History?: Yes - Past Social History Smoking Status: Former Smoker - CARDIAC Hx Cardiac Disorders: Yes Hx Hypertension: Yes - PULMONARY Hx Respiratory Disorders: No - NEUROLOGICAL Hx Neurological Disorder: Yes Hx Syncope: Yes - HEENT Hx HEENT Problems: No - RENAL Hx Chronic Kidney Disease: No - ENDOCRINE/METABOLIC Hx Endocrine Disorders: No - HEMATOLOGICAL/ONCOLOGICAL Hx Blood Disorders: Yes Hx Anemia: Yes Hx Blood Transfusions: Yes Hx Human Immunodeficiency Virus (HIV): No - INTEGUMENTARY Hx Dermatological Problems: No - MUSCULOSKELETAL/RHEUMATOLOGICAL Hx Musculoskeletal Disorders: Yes Hx Back Pain: Yes Hx Falls: Yes - GASTROINTESTINAL Hx Gastrointestinal Disorders: No - GENITOURINARY/GYNECOLOGICAL Hx Genitourinary Disorders: No Hx Sexually Transmitted Disorders: No - PSYCHIATRIC Hx Psychophysiologic Disorder: No Hx Substance Use: Yes (HEROIN) - SURGICAL HISTORY Hx Surgeries: Yes Other/Comment: PROSTATECTOMY, Right foot surgery, back surgery - ANESTHESIA Hx Anesthesia: Yes Hx Anesthesia Reactions: No Hx Malignant Hyperthermia: No Meds Allergies/Adverse Reactions: Allergies Allergy/AdvReac Type Severity Reaction Status Date / Time No Known Allergies Allergy Verified 01/02/19 13:38 Results - Vital Signs Recent Vital Signs: Last Vital Signs Temp 97.6 F 01/05/19 07:46 Pulse 67 01/05/19 07:46 Resp 18 01/05/19 07:46 BP 146/75 01/05/19 07:46 Pulse Ox 100 01/05/19 07:46 - Labs Result Diagrams: 01/05/19 05:10 01/05/19 05:10 Labs: Laboratory Results - last 24 hr 01/04/19 01/04/19 01/04/19 15:36 15:36 15:36 WBC 5.8 RBC 3.94 L Hgb 7.9 L Hct 26.0 L MCV 65.9 L MCH 20.1 L MCHC 30.4 L RDW 24.7 H Plt Count 156 MPV 9.3 Neut % (Auto) 71.7 Lymph % (Auto) 13.9 L [place] % (Auto) 9.2 Eos % (Auto) 4.7 H Baso % (Auto) 0.5 Neut # (Auto) 4.1 Lymph # (Auto) 0.8 L [place] # (Auto) 0.5 Eos # (Auto) 0.3 Baso # (Auto) 0.0 PT 12.4 INR 1.1 APTT 35.8 Sodium 136 Potassium 5.1 H Chloride 102 Carbon Dioxide 26 Anion Gap 13 BUN 27 H Creatinine 0.8 Est GFR ( Amer) > 60 Est GFR (Non-Af Amer) > 60 Random Glucose 95 Calcium 8.5 Total Bilirubin 0.5 AST 69 H ALT 51 Alkaline Phosphatase 111 Troponin I < 0.0120 Total Protein 7.7 Albumin 4.3 Globulin 3.4 Albumin/Globulin Ratio 1.3 Urine Color Urine Clarity Urine pH Ur Specific [place] Urine Protein Urine Glucose (UA) Urine Ketones Urine Blood Urine Nitrate Urine Bilirubin Urine Urobilinogen Ur Leukocyte Esterase Urine RBC (Auto) Urine Microscopic WBC Ur Squamous Epith Cells Hyaline Casts Urine Opiates Screen Urine Methadone Screen Ur Barbiturates Screen Ur Phencyclidine Scrn Ur Amphetamines Screen U Benzodiazepines Scrn U Oth Cocaine Metabols U Cannabinoids Screen Alcohol, Quantitative < 10 Blood Type Antibody Screen Crossmatch BBK History Checked 01/04/19 01/04/19 01/04/19 15:36 15:36 18:25 WBC RBC Hgb Hct MCV MCH MCHC RDW Plt Count MPV Neut % (Auto) Lymph % (Auto) [place] % (Auto) Eos % (Auto) Baso % (Auto) Neut # (Auto) Lymph # (Auto) [place] # (Auto) Eos # (Auto) Baso # (Auto) PT INR APTT Sodium Potassium Chloride Carbon Dioxide Anion Gap BUN Creatinine Est GFR ( Amer) Est GFR (Non-Af Amer) Random Glucose Calcium Total Bilirubin AST ALT Alkaline Phosphatase Troponin I Total Protein Albumin Globulin Albumin/Globulin Ratio Urine Color Yellow Urine Clarity Cloudy Urine pH 6.0 Ur Specific [place] 1.020 Urine Protein 30 Urine Glucose (UA) Neg Urine Ketones Negative Urine Blood Small Urine Nitrate Negative Urine Bilirubin Negative Urine Urobilinogen 0.2-1.0 Ur Leukocyte Esterase Mod Urine RBC (Auto) 16 H Urine Microscopic WBC 111 H Ur Squamous Epith Cells < 1 Hyaline Casts 6-10 H Urine Opiates Screen Positive H Urine Methadone Screen Negative Ur Barbiturates Screen Negative Ur Phencyclidine Scrn Negative Ur Amphetamines Screen Negative U Benzodiazepines Scrn Negative U Oth Cocaine Metabols Negative U Cannabinoids Screen Negative Alcohol, Quantitative Blood Type O POSITIVE Antibody Screen Negative Crossmatch See Detail BBK History Checked Patient has bt 01/05/19 01/05/19 05:10 05:10 WBC 4.3 L RBC 4.53 Hgb 9.3 L Hct 30.3 L MCV 66.8 L MCH 20.6 L MCHC 30.9 L RDW 25.6 H Plt Count 131 MPV 9.0 Neut % (Auto) 71.0 Lymph % (Auto) 13.4 L [place] % (Auto) 10.2 H Eos % (Auto) 5.2 H Baso % (Auto) 0.2 Neut # (Auto) 3.1 Lymph # (Auto) 0.6 L [place] # (Auto) 0.4 Eos # (Auto) 0.2 Baso # (Auto) 0.0 PT INR APTT Sodium 134 Potassium 4.9 Chloride 99 Carbon Dioxide 27 Anion Gap 13 BUN 20 Creatinine 0.7 L Est GFR ( Amer) > 60 Est GFR (Non-Af Amer) > 60 Random Glucose 95 Calcium 8.8 Total Bilirubin 0.5 AST 57 ALT 46 Alkaline Phosphatase 119 Troponin I Total Protein 7.5 Albumin 4.0 Globulin 3.4 Albumin/Globulin Ratio 1.2 Urine Color Urine Clarity Urine pH Ur Specific [place] Urine Protein Urine Glucose (UA) Urine Ketones Urine Blood Urine Nitrate Urine Bilirubin Urine Urobilinogen Ur Leukocyte Esterase Urine RBC (Auto) Urine Microscopic WBC Ur Squamous Epith Cells Hyaline Casts Urine Opiates Screen Urine Methadone Screen Ur Barbiturates Screen Ur Phencyclidine Scrn Ur Amphetamines Screen U Benzodiazepines Scrn U Oth Cocaine Metabols U Cannabinoids Screen Alcohol, Quantitative Blood Type Antibody Screen Crossmatch BBK History Checked
--- NOTE | 2019-01-05 12:29 | CP.PCM.DIS ---
Provider - Provider Date of Admission: 01/04/19 16:03 Attending physician: Daniela Ballesteros MD Consults: 01/04/19 23:22 Social Work Referral Routine Comment: HEROIN ABUSE Physician Instructions: Reason For Exam: HEROIN ABUSE Hospital Course - Lab Results Lab Results: Most Recent Lab Values WBC 4.3 K/uL (4.8-10.8) L 01/05/19 05:10 RBC 4.53 Mil/uL (4.40-5.90) 01/05/19 05:10 Hgb 9.3 g/dL (12.0-18.0) L 01/05/19 05:10 Hct 30.3 % (35.0-51.0) L 01/05/19 05:10 MCV 66.8 fl (80.0-94.0) L 01/05/19 05:10 MCH 20.6 pg (27.0-31.0) L 01/05/19 05:10 MCHC 30.9 g/dL (33.0-37.0) L 01/05/19 05:10 RDW 25.6 % (11.5-14.5) H 01/05/19 05:10 Plt Count 131 K/uL (130-400) 01/05/19 05:10 MPV 9.0 fl (7.2-11.7) 01/05/19 05:10 Neut % (Auto) 71.0 % (50.0-75.0) 01/05/19 05:10 Lymph % (Auto) 13.4 % (20.0-40.0) L 01/05/19 05:10 [place] % (Auto) 10.2 % (0.0-10.0) H 01/05/19 05:10 Eos % (Auto) 5.2 % (0.0-4.0) H 01/05/19 05:10 Baso % (Auto) 0.2 % (0.0-2.0) 01/05/19 05:10 Neut # (Auto) 3.1 K/uL (1.8-7.0) 01/05/19 05:10 Lymph # (Auto) 0.6 K/uL (1.0-4.3) L 01/05/19 05:10 [place] # (Auto) 0.4 K/uL (0.0-0.8) 01/05/19 05:10 Eos # (Auto) 0.2 K/uL (0.0-0.7) 01/05/19 05:10 Baso # (Auto) 0.0 K/uL (0.0-0.2) 01/05/19 05:10 PT 12.4 Seconds (9.8-13.1) 01/04/19 15:36 INR 1.1 01/04/19 15:36 APTT 35.8 Seconds (25.6-37.1) 01/04/19 15:36 Sodium 134 mmol/l (132-148) 01/05/19 05:10 Potassium 4.9 MMOL/L (3.6-5.0) 01/05/19 05:10 Chloride 99 mmol/L (98-107) 01/05/19 05:10 Carbon Dioxide 27 mmol/L (22-30) 01/05/19 05:10 Anion Gap 13 (10-20) 01/05/19 05:10 BUN 20 mg/dl (9-20) 01/05/19 05:10 Creatinine 0.7 mg/dl (0.8-1.5) L 01/05/19 05:10 Est GFR ( Amer) > 60 01/05/19 05:10 Est GFR (Non-Af Amer) > 60 01/05/19 05:10 Random Glucose 95 mg/dL (75-110) 01/05/19 05:10 Calcium 8.8 mg/dL (8.4-10.2) 01/05/19 05:10 Total Bilirubin 0.5 mg/dl (0.2-1.3) 01/05/19 05:10 AST 57 U/L (17-59) 01/05/19 05:10 ALT 46 U/L (21-72) 01/05/19 05:10 Alkaline Phosphatase 119 U/L (38-126) 01/05/19 05:10 Troponin I < 0.0120 ng/mL (0.00-0.120) 01/04/19 15:36 Total Protein 7.5 G/DL (6.3-8.2) 01/05/19 05:10 Albumin 4.0 g/dL (3.5-5.0) 01/05/19 05:10 Globulin 3.4 gm/dL (2.2-3.9) 01/05/19 05:10 Albumin/Globulin Ratio 1.2 (1.0-2.1) 01/05/19 05:10 Urine Color Yellow (YELLOW) 01/04/19 15:36 Urine Clarity Cloudy (Clear) 01/04/19 15:36 Urine pH 6.0 (5.0-8.0) 01/04/19 15:36 Ur Specific [place] 1.020 (1.003-1.030) 01/04/19 15:36 Urine Protein 30 mg/dL (NEGATIVE) 01/04/19 15:36 Urine Glucose (UA) Neg mg/dL (NEGATIVE) 01/04/19 15:36 Urine Ketones Negative mg/dL (NEGATIVE) 01/04/19 15:36 Urine Blood Small (NEGATIVE) 01/04/19 15:36 Urine Nitrate Negative (NEGATIVE) 01/04/19 15:36 Urine Bilirubin Negative (NEGATIVE) 01/04/19 15:36 Urine Urobilinogen 0.2-1.0 mg/dL (0.2-1.0) 01/04/19 15:36 Ur Leukocyte Esterase Mod Doc/uL (Negative) 01/04/19 15:36 Urine RBC (Auto) 16 /hpf (0-3) H 01/04/19 15:36 Urine Microscopic WBC 111 /hpf (0-5) H 01/04/19 15:36 Ur Squamous Epith Cells < 1 /hpf (0-5) 01/04/19 15:36 Hyaline Casts 6-10 /hpf (0-2) H 01/04/19 15:36 Urine Opiates Screen Positive (NEGATIVE) H 01/04/19 15:36 Urine Methadone Screen Negative (NEGATIVE) 01/04/19 15:36 Ur Barbiturates Screen Negative (NEGATIVE) 01/04/19 15:36 Ur Phencyclidine Scrn Negative (NEGATIVE) 01/04/19 15:36 Ur Amphetamines Screen Negative (NEGATIVE) 01/04/19 15:36 U Benzodiazepines Scrn Negative (NEGATIVE) 01/04/19 15:36 U Oth Cocaine Metabols Negative (NEGATIVE) 01/04/19 15:36 U Cannabinoids Screen Negative (NEGATIVE) 01/04/19 15:36 Alcohol, Quantitative < 10 mg/dl (0-10) 01/04/19 15:36 Blood Type O POSITIVE 01/04/19 18:25 Antibody Screen Negative 01/04/19 18:25 Crossmatch See Detail 01/04/19 18:25 BBK History Checked Patient has bt 01/04/19 18:25 Discharge Exam - Head Exam Head Exam: NORMAL INSPECTION Discharge Plan - Follow Up Plan Condition: GOOD Disposition: AGAINST MEDICAL ADVICE
== END 2019-01-05 07:45 | disposition left against medical advice (07) ==
LOC: H.ER 13:55 → H.ERHOLD 16:03 → H.TEL 21:14
PROVIDERS: ADMIT Family Medicine; ATTEND Family Medicine
DX: R55 Syncope and collapse (principal); D64.9 Anemia, unspecified; F11.10 Opioid abuse, uncomplicated; I10 Essential (primary) hypertension; Z87.891 Personal history of nicotine dependence
CPT/HCPCS: 36415; 36430; 70450; 71045; 80053; 81003; 84484; 85025; 85610; 85730; 86850; 86900; 86920; 93005; 96360; 99285; G0378; G0480; J0696; P9051